=== PATIENT | male | born 1930 | race Caucasian/White ===

== ENCOUNTER 2017-04-13 03:29 | Inpatient (IN) | payer OTHER, MEDICARE ==
[~2017-04-13] VITALS: Ht 180.3 cm; Wt 95.5 kg
[2017-04-13] VITALS (41 sets, daily range): BP systolic 115–147; BP diastolic 58–93; PULSE 42–78; RESP 15–28; TEMP 97.4–98.1; O2SAT 90–100
[2017-04-13] MEDS ORDERED: ASPIRIN 81 MG CHEW TAB PO STA (03:32)
[2017-04-13] MEDS ORDERED: SODIUM CHLOR 0.9% 1000 ML INJ 1,000 ML IV ONE (03:32)
[2017-04-13] MEDS ORDERED: HEPARIN SODIUM - IV 10,000 UNITS/10 ML VIAL IV STA (03:32)
--- NOTE | 2017-04-13 03:39 | PD ---
HPI Chief Complaint: STEMI Alert Time Seen by Provider: 03:31 Travel History International Travel<30 days: No Contact w/Intl Traveler<30days: No History of Present Illness HPI 86-year-old male arrives by EMS. He's had chest pain intermittently for the past 2 days. Pain became much worse this evening and he called EMS. He's had no shortness of breath. There is no pleuritic chest pain. For the last few months he has been working out at the [employer] fairly intensely. Patient has history of hypertension. He has no history of hyperlipidemia or diabetes. He is a history of coronary artery disease. EMS EKG concerning for inferior wall SD. In the ER the patient states his chest pain is 7/10 in severity. STEMI alert activated upon the patient's arrival. [facility] Social History Tobacco Use: No Allergies-Medications (Allergen,Severity, Reaction): Coded Allergies: No Known Allergies (Unverified , 04/13/17) Reported Meds & Prescriptions Reported Meds & Active Scripts Active Reported Hydrochlorothiazide 12.5 Mg Cap 12.5 Mg PO DAILY Review of Systems ROS Limitations: Clinical Condition Physical Exam Narrative GENERAL: 86-year-old male well-nourished well-developed mild to moderate distress SKIN: Warm. Diaphoresis present. HEAD: Atraumatic. Normocephalic. EYES: Pupils equal and round. No scleral icterus. No injection or drainage. ENT: No nasal bleeding or discharge. Mucous membranes pink and moist. NECK: Trachea midline. No JVD. CARDIOVASCULAR: Sinus. Rate 40-50. RESPIRATORY: No accessory muscle use. Clear to auscultation. Breath sounds equal bilaterally. GASTROINTESTINAL: Abdomen soft, non-tender, nondistended. Hepatic and splenic margins not palpable. MUSCULOSKELETAL: No obvious deformities. No clubbing. No cyanosis. No edema. NEUROLOGICAL: Awake and alert. No obvious cranial nerve deficits. Motor grossly within normal limits. Normal speech. PSYCHIATRIC: Appropriate mood and affect; insight and judgment normal. Data Data Last Documented VS Vital Signs Date Time Temp Pulse Resp B/P Pulse Ox O2 Delivery O2 Flow Rate FiO2 04/13/17 03:30 100 2.00 04/13/17 03:30 Nasal Cannula 04/13/17 03:29 97.7 45 18 147/81 Orders Troponin I (04/13/17 03:32) Ckmb (Isoenzyme) Profile (04/13/17 03:32) Complete Blood Count With Diff (04/13/17 03:32) I-Stat Profile (04/13/17 03:32) I-Stat Creatinine (04/13/17 03:32) Calcium (04/13/17 03:32) Magnesium (Mg) (04/13/17 03:32) Prothrombin Time / Inr (Pt) (04/13/17 03:32) Act Partial Throm Time (Ptt) (04/13/17 03:32) B-Type Natriuretic Peptide (04/13/17 03:32) Chest, Single Ap (04/13/17 03:32) Electrocardiogram (04/13/17 03:32) Oxygen Administration (04/13/17 03:32) Iv Access Insert/Monitor (04/13/17 03:32) Oximetry (04/13/17 03:32) Sodium Chlor 0.9% 1000 Ml Inj (Ns 1000 M (04/13/17 03:32) Sodium Chloride 0.9% Flush (Ns Flush) (04/13/17 03:45) Aspirin Chew (Aspirin Chew) (04/13/17 03:32) Heparin Inj (Heparin Inj) (04/13/17 03:32) Admit Order (Ed Use Only) (04/13/17 03:39) CKMB (04/13/17 03:30) CKMB% (04/13/17 03:30) Labs Laboratory Tests Test 04/13/17 03:30 White Blood Count 10.7 TH/MM3 Red Blood Count 5.11 MIL/MM3 Hemoglobin 15.8 GM/DL Bedside Hemoglobin 15.6 G/DL Hematocrit 45.4 % Bedside Hematocrit 46.0 % Mean Corpuscular Volume 88.7 FL Mean Corpuscular Hemoglobin 30.8 PG Mean Corpuscular Hemoglobin 34.7 % Concent Red Cell Distribution Width 14.6 % Platelet Count 406 TH/MM3 Mean Platelet Volume 10.1 FL Neutrophils (%) (Auto) 67.8 % Lymphocytes (%) (Auto) 23.3 % Monocytes (%) (Auto) 6.2 % Eosinophils (%) (Auto) 2.0 % Basophils (%) (Auto) 0.7 % Neutrophils # (Auto) 7.2 TH/MM3 Lymphocytes # (Auto) 2.5 TH/MM3 Monocytes # (Auto) 0.7 TH/MM3 Eosinophils # (Auto) 0.2 TH/MM3 Basophils # (Auto) 0.1 TH/MM3 CBC Comment DIFF FINAL Differential Comment Prothrombin Time 11.3 SEC Prothromb Time International 1.0 RATIO Ratio Activated Partial 26.3 SEC Thromboplast Time Bedside Sodium 141 MMOL/L Bedside Potassium 3.0 MMOL/L Bedside Chloride 98 MMOL/L Bedside Blood Urea Nitrogen 21 MG/DL Bedside Creatinine 1.4 MG/DL Bedside Glucose 115 MG/DL Calcium Level 9.3 MG/DL Magnesium Level 1.9 MG/DL Total Creatine Kinase 125 U/L Creatine Kinase MB 2.7 NG/ML Troponin I 0.50 NG/ML B-Type Natriuretic Peptide 45 PG/ML MDM Medical Decision Making Medical Screen Exam Complete: Yes Emergency Medical Condition: Yes Differential Diagnosis NSTEMI, unstable angina, coronary vasospasm, PE, PTX, aortic dissection, pericarditis, myocarditis, endocarditis, PNA, esophageal disease, aneurysm, musculoskeletal etiologies, anxiety, cocaine/sympathomimetic abuse Narrative Course EKG reveals sinus rhythm with ST elevations in II III and aVF, ST depression present in V2 Case discussed with Dr. Clement's at 3:35 AM. The patient will go to the Network Program Manager for percutaneous intervention. Pt was accompanied to the laborer drying department until Dr Hanna arrived at 415AM. Critical Care Narrative Aggregate critical care time was 35 minutes. Time to perform other separately billable procedures was not included in the critical care time. My time did not include minutes spent treating any other patients simultaneously or on activities that did not directly contribute to the patient's treatment. The services I provided to this patient were to treat and/or prevent clinically significant deterioration that could result in: cardiopulmonary arrest, multiorgan failure I provided critical care services requiring my management, as noted below: Chart data review, documentation time, medication orders and management, vital sign assessments/reviewing monitor data, ordering and reviewing lab tests, ordering and interpreting/reviewing x-rays and diagnostic studies, care of the patient and discussion of the patient with the admitting physicians. Diagnosis Primary Impression: STEMI (ST elevation myocardial infarction) Qualified Code: I21.19 - ST elevation myocardial infarction (STEMI) involving other coronary artery of inferior wall Admitting Information Admitting Physician Requests: Admit Eulogio Brown MD Apr 13, 2017 03:39
[2017-04-13] MEDS ORDERED: SODIUM CHLORIDE 0.9% FLUSH 10 ML FLUSH IVF PRN (03:45)
[2017-04-13 03:46] LABS: I-STAT SODIUM 141 MMOL/L (138-146)
[2017-04-13 03:47] LABS: AUTOMATED NEUTROPHIL # 7.2 TH/MM3 (1.8-7.7); BASOPHIL # 0.1 TH/MM3 (0-0.2); BASOPHIL % 0.7 % (0.0-2.0); EOSINOPHIL # 0.2 TH/MM3 (0-0.4); HEMATOCRIT 45.4 % (39.0-51.0); HEMO FLAGS DIFF FINAL; LYMPH % 23.3 % (9.0-44.0); LYMPHOCYTE # 2.5 TH/MM3 (1.0-4.8); MEAN CELL VOLUME 88.7 FL (80.0-100.0); MEAN CORPUSCULAR HEMOGLOBIN 30.8 PG (27.0-34.0); MEAN CORPUSCULAR HGB CONC 34.7 % (32.0-36.0); MONO % 6.2 % (0.0-8.0); NEUT % 67.8 % (16.0-70.0); PLATELET COUNT 406 TH/MM3 (150-450); RED BLOOD COUNT 5.11 MIL/MM3 (4.50-5.90); RED CELL DISTRIBUTION WIDTH 14.6 % (11.6-17.2); WHITE BLOOD COUNT 10.7 TH/MM3 (4.0-11.0)
[2017-04-13 03:56] LABS: APTT (PATIENT) 26.3 SEC (24.3-30.1); PROTHROMBIN TIME - PATIENT 11.3 SEC (9.8-11.6)
[2017-04-13] MEDS ORDERED: ONDANSETRON HCL 4 MG/2 ML VIAL ONE (03:57)
[2017-04-13 04:00] LABS: MAGNESIUM 1.9 MG/DL (1.5-2.5)
[2017-04-13] MEDS ORDERED: MORPHINE SULFATE 8 MG/ML INJ ONE (04:00)
[2017-04-13 04:03] LABS: CREATINE KINASE 125 U/L (39-308)
[2017-04-13 04:15] LABS: CKMB 2.7 NG/ML (0.5-3.6)
[2017-04-13] MEDS ORDERED: HEPARIN SODIUM - IV 10,000 UNITS/10 ML VIAL ONE (04:18)
--- NOTE | 2017-04-13 04:19 | RADRPT ---
EXAM DATE/TIME: 04/13/2017 03:29 [place] COMPARISON: No previous studies available for comparison. INDICATIONS : STEMI ALERT. MEDICAL HISTORY : None. SURGICAL HISTORY : None. ENCOUNTER: Initial ACUITY: 1 day PAIN SCORE: Non-responsive. LOCATION: Bilateral chest FINDINGS: A single view of the chest demonstrates the lungs to be symmetrically aerated without evidence of mas s, confluent infiltrate or effusion. The cardiomediastinal contours are unremarkable. Streaky opaci ty is present at both lung bases. Osseous structures are intact. CONCLUSION: Streaky opacities present at the lung bases most characteristic of scarring and/or at electasis. Dallin Landry MD on April 13, 2017 at 4:16 Board Certified Radiologist. This report was verified electronically.
[2017-04-13] MEDS ORDERED: HYDR12.57 PO (04:22)
[2017-04-13] MEDS ORDERED: ATROPINE SULFATE 1 MG/10 ML SYRINGE ONE ×3 (04:33→06:30)
[2017-04-13] MEDS ORDERED: ONDANSETRON HCL 4 MG/2 ML VIAL IV PUSH ONE (04:45)
[2017-04-13] MEDS ORDERED: ATROPINE SULFATE 1 MG/10 ML SYRINGE IV PUSH ONE (04:45)
[2017-04-13] MEDS ORDERED: MORPHINE SULFATE 8 MG/ML INJ IV PUSH ONE (04:45)
[2017-04-13] MEDS ORDERED: HEPARIN-D5W INJ 250 ML ONE (05:01)
[2017-04-13] MEDS ORDERED: POTASSIUM CHLORIDE 20 MEQ CONTROLLED RELEASE TAB PO ONE (05:20)
[2017-04-13] MEDS ORDERED: TEMAZEPAM 15 MG CAP PO PRN (05:30)
[2017-04-13] MEDS ORDERED: HEPARIN-D5W INJ 250 ML IV SCH (05:30)
[2017-04-13] MEDS ORDERED: POTASSIUM CHLOR 20 MEQ PREMIX 100 ML IV ONE (05:30)
[2017-04-13] MEDS ORDERED: SODIUM CHLORIDE 0.9% FLUSH 5 ML FLUSH IVF PRN (05:30)
--- NOTE | 2017-04-13 05:30 | CATHPROC ---
[employer] HIS Report Study Information Study Number Admission Scheduled Start Study Start [id number] Apr 13 2017 3:40AM 04/13/2017 Apr 13 2017 4:06AM [place] Service Cardiac Catheterization Admit Source Facility Department Emergency department [facility] Physician and Clinical Staff Initial Fransisco Leal [employer] Work Supervisor Litzy Ojeda RN [employer] Work Supervisor Abraham WASHBURN, Toño Spangler cathlab, cathlab Recorder Rosy Camargo,BONE GLUE MAKER TECH2 Scrub Bill De La Torre,RT(R) Procedures Performed Procedure Location (Site) Vessel Name Coronary Angiograms LCA Left Coronary Coronary Angiograms RCA Right Coronary IABP Fem Art (right) Femoral Art L Heart Cath PTCA RCA Ost Right Coronary PTCA RCA Prox Right Coronary Wire insertion Fem Art (right) Femoral Art Equipment Time Toe Closing Machine Tender Description Size Mfg Part Number Used/Scraped [id number] 04:37 [employer] WIRE, ASAHI PROWATER 180CM 180CM Used *[id number] TRANSDUCER, TRUWAVE [id number] 04:27 VILLANUEVA NORTON * Used W/STOCKCOCK *[id number] 04:40 BOSTON SCIENTIFIC BALLOON, 2.0 15MM EMERGE MR 2.0 15MM Used *[id number] *[id number] *[id number] *[id number] 04:51 MAQUET BALLOON, FR8 50CC FR 8 50CC Used 01U [id number] 04:27 MEDLINE INDUSTRIES PACK, CCL CUSTOM * Used *[id number] 04:27 FeZo PACER PEN, SKIN DUAL W/ RULER * Used *[id number] 04:41 Ready To Travel MEDICAL 30 ANI INDEFLATOR Used *[id number] 04:27 Ready To Travel MEDICAL SHEATH, FR6.5 PRELUDE 11CM FR 6.5 038ACT Used *[id number] 04:27 Ready To Travel MEDICAL WIRE, 3MMJ .035 180CM 180CM Used *[id number] 04:27 NAMIC MANIFOLD, 4 PORT * Used *[id number] 04:27 NYCOMED OMNIPAQUE, 350 MG, 150ML 150ML [id number] Used [id number] 04:27 PAN MEDICAL BLANKET,WARM AIR CCL * Used *[id number] Equipment Model, Serial, Lot Number and Expiration Data Description Model Number Serial Number Lot Number Expiration Date BALLOON, 2.0 15MM EMERGE MR [id number] 11-01-2019 History: Allergies Allergy Reaction No Known Allergies History: Risk Factors Family History of Hypertension Dyslipidemia Previous [place] Previous Heart Failure Premature CAD Yes No No No No Prior Valve Prior PCI Prior CABG Surgery No No No Cerebrovascular Peripheral Artery Chronic Lung On Dialysis Diabetes Disease Disease Disease No No No No No Labs Hgb (g/dl) Hct (%) RBC (MIL/MM3) WBC (l/cumm) Platelets (thousands) 11.60-17.00 35.00-51.00 4.00-5.90 4.00-11.00 150.00-450.00 15.6 45.4 5.1 10.7 406 Glucose (mg/dl) BUN (mg/dl) Creatinine (mg/dl) BUN:Creatinine (1:x) 74.00-106.00 7.00-18.00 0.50-1.30 10.00-20.00 115 21 1.4 15 Na (meq/l) K (meq/l) Cl (meq/l) Ca (mg/dl) 136.00-145.00 3.50-5.10 98.00-107.00 8.50-10.10 141 3 98 8.3 PT (sec) PTT (sec) INR (PTT:PT) 9.80-11.60 24.30-30.10 0.90-1.10 11.3 26.3 1 Troponin I (ng/ml) 0.02-0.05 0.5 Medication Medication Total Dose (Bolus/Oral) Medication Total Dosage/Unit 1% XYLOCAINE 20 mL ATROPINE 1 mg FENTANYL 50 mcg HEPARIN 6000 units OXYGEN 2 l/min POTASSIUM CHLORIDE 40 meq Medications (Bolus/Oral) Medication Time Given Dosage/Unit Administered By Reason OXYGEN 04/13/2017 4:08:29 AM 2 l/min Patient arrived on 2 l/min OXYGEN via Nasal. FENTANYL 04/13/2017 4:19:27 AM 50 mcg Toño Rosario RN 50 mcg FENTANYL given in lab by Toño Rosario RN in Left Antecubital via Peripheral IV. Ordered by Fransisco Castillo. 1% XYLOCAINE 04/13/2017 4:26:17 AM 20 mL Fransisco Hanna 20 mL 1% XYLOCAINE given in lab by Fransisco Hanna in Right Groin via Subcutaneous. Ordered by Maikol Hanna enn. HEPARIN 04/13/2017 4:34:39 AM 6000 units Toño Rosario RN 6000 units HEPARIN given in lab by Toño Rosario RN in Left Antecubital via Peripheral IV. Ordered by Fransisco Hanna. ATROPINE 04/13/2017 4:52:43 AM 0.5 mg Toño Rosario RN 0.5 mg ATROPINE given in lab by Toño Rosario RN in Left Antecubital via Peripheral IV. Ordered by Fransisco Castillo. ATROPINE 04/13/2017 4:53:17 AM 0.5 mg Litzy Ojeda 0.5 mg ATROPINE given in lab by Litzy Ojeda RN in Left Antecubital via Peripheral IV. Ordered by Fransisco Hanna. POTASSIUM CHLORIDE 04/13/2017 5:23:11 AM 40 meq Litzy Ojeda 40 meq POTASSIUM CHLORIDE given in lab by Litzy Ojeda RN via Oral. Medication (Drip) Medication Time Given Dosage/Unit Concentration/Unit Diluent (ml) Solution HEPARIN DRIP 04/13/2017 5:04:53 AM 1000 units/hr 05354 units 250 D5W Patient arrived on 1000 units/hr HEPARIN DRIP given by Litzy Ojeda RN in Right Antecubital via Pe ripheral IV. Pump/Drip Flow = 10 ml/hr using D5W [place] [address] units in 250 ml. IV Solutions 04/13/2017 4:06:56 AM 0 mL (IV) 1000 NaCl .9 IV Solutions given in lab by Toño Rosario RN in Left Antecubital via Peripheral IV. Pump/Drip Flow = 20 ml/hr using NaCl .9. Ordered by Fransisco Hanna. Initial Case Assessment Cardiovascular HR NIBP 66 161/101 Edema Present Skin color Skin Moderate Normal Warm Circulatory - Right Pulses Posterior Tibial Femoral d 3 Scale (0,1,2,3,4,d) Circulatory - Left Pulses Posterior Tibial Femoral d 3 Scale (0,1,2,3,4,d) Neurological State Oriented to time-place- Alert Moves all extremities person Respiration - General Respiration Rate SpO2 (%) O2 (lpm) (B/min) 15 100 2 Final Case Assessment Cardiovascular HR NIBP 66 91/65 Edema Present Skin color Skin Moderate Normal Warm Circulatory - Right Pulses Posterior Tibial Femoral d 3 Scale (0,1,2,3,4,d) Circulatory - Left Pulses Posterior Tibial Femoral d 3 Scale (0,1,2,3,4,d) Neurological State Oriented to time-place- Alert Moves all extremities person Respiration - General Respiration Rate SpO2 (%) O2 (lpm) (B/min) 12 100 3 Chronological Log Time Study Chronological Log 4:06:40 Patient arrived via Bed. 4:06:40 Patient Name, D.O.B, / Armband Verified By R.N. 4:06:41 Consent signed by the physician and the patient and verified by the [facility] staff. 4:06:42 Pre-op and post- op instructions given; patient acknowledges understanding of instructions. 4:06:42 Verbal Stimulation=2 Physical Stimulation=2 Airway=2 Respiration=2 TOTAL=8. (0=absent, 1=li mited, 2=present) 4:06:44 Presedation assessment performed by [facility] RN. 4:06:47 Patient has been NPO for Less than 6Hrs. 4:06:48 NO Skin Breakdown- 4:06:49 Patient Warmer Placed on the Table. 4:06:51 Leonardo Prominences Protected 4:06:53 A # 20 IV was noted in the Antecubital (left). Grade = 0 IV Solutions given in lab by Toño Rosario RN in Left Antecubital via Peripheral IV. Pump/Drip Flow = 20 ml/hr using NaCl 4:06:56 .9. Ordered by Fransisco Hanna. 4:06:58 History and physical on the chart or being dictated. 4:08:29 Patient arrived on 2 l/min OXYGEN via Nasal. Vitals capture started with the following parameters, Patient=Adult, Interval=5 min, Initial P eiftnmb=432 mmHg, 4:09:18 Deflation Rate=5 mmHg, Cuff placed on Right Arm 4:09:57 HR=66 bpm, VUSG=102/103 mmhg, SmF3=008.0 %, Pain=7, Nomi=10, Lorenzo=2 4:14:54 HR=66 bpm, XOWS=830/93 mmhg, SpO2=96.0 %, Resp=9 B/min, Pain=7, Nomi=10, Lorenzo=2 4:17:15 Reference ECG taken 4:19:27 50 mcg FENTANYL given in lab by Toño Rosario RN in Left Antecubital via Peripheral IV. Order ed by Fransisco Hanna. 4:19:57 HR=58 bpm, HNFH=929/101 mmhg, UpU2=280.0 %, Resp=10 B/min, Pain=7, Nomi=10, Lorenzo=2 Assessment: Initial Case, HR=66 BPM, LBNR=111/101 mmhg, Edema=Mod, Color=Normal, Skin = Warm Right Pulses: Post Tib=d, Femoral=3 4:21:25 Left Pulses: Post Tib=d, Femoral=3 Neurological: State=Alert, Ox3, RITCHIE Respiration: Resp=15 B/min, YlP6=891 %, O2=2 lpm 4:21:47 Pressure channel 1 zeroed. Time Out. Correct patient, correct procedure,correct physician, ,power injector loaded or not lo aded with contrast with 4:24:38 surgical team present. Time Out Concurred by MD, individual staff and SOCIAL SERVICE MANAGER in procedure 4:24:58 HR=56 bpm, MBML=066/105 mmhg, FaA5=984.0 %, Resp=23 B/min, Pain=7, Nomi=10, Lorenzo=2 4:25:42 Case Start 4:26:17 20 mL 1% XYLOCAINE given in lab by Fransisco Hanna in Right Groin via Subcutaneous. Ordered by Fransisco Hanna. 4:26:23 Access site was Right Femoral Artery. 4:26:38 A SHEATH, FR6.5 PRELUDE 11CM FR 6.5 was advanced into the Fem Art (right) using the Modified Seldinger technique. A JL 4.0 INFINITI CATHETER FR 6 was advanced over a wire. OMNIPAQUE, 350 MG, 150ML 150ML was use d for 4:27:02 injections. 4:27:58 Activated Clotting Time Drawn 4:29:27 The LCA was injected and visualized at various angles. OMNIPAQUE, 350 MG, 150ML 150ML used. Recorded Pressure: Ao, HR=80, Condition=Condition 1 4:29:38 (Aorta) Ao 153/87/118 4:29:54 ACT (Normal Range 90-180) = 174 4:30:22 HR=80 bpm, LCYQ=350/92 mmhg, QhL0=440.0 %, Resp=15 B/min, Pain=7, Nomi=10, Lorenzo=2 4:31:23 shock at 200jouls 4:32:03 Catheter was removed A 3DRC INFINITI CATHETER FR 6 was advanced over a wire. OMNIPAQUE, 350 MG, 150ML 150ML was used for 4:32:04 injections. 4:33:23 The RCA was injected and visualized at various angles. OMNIPAQUE, 350 MG, 150ML 150ML used. 4:34:39 6000 units HEPARIN given in lab by Toño Rosario RN in Left Antecubital via Peripheral IV. Or dered by Fransisco Hanna. 4:34:54 HR=55 bpm, SDBW=634/94 mmhg, SpO2=99.0 %, Resp=17 B/min, Pain=7, Nomi=10, Lorenzo=2 4:36:09 Catheter was removed A HS SH GUIDE CATHETER FR 6 was advanced over a wire. OMNIPAQUE, 350 MG, 150ML 150ML was used fo r 4:36:11 injections. 4:36:55 A WIRE, ASAHI PROWATER 180CM 180CM was inserted via Fem Art (right). 4:39:55 HR=55 bpm, PNAL=306/98 mmhg, SpO2=99.0 %, Resp=15 B/min, Pain=7, Nomi=10, Lorenzo=2 A BALLOON, 2.0 15MM EMERGE MR 2.0 15MM was inserted over WIRE, ASAHI PROWATER 180CM 180CM via th e RCA 4:40:52 Prox. A BALLOON, 2.0 15MM EMERGE MR 2.0 15MM over a WIRE, ASAHI PROWATER 180CM 180CM in the RCA Prox w as 4:41:14 inflated using a 30 ANI INDEFLATOR at 8 ani for 30 sec. A BALLOON, 2.0 15MM EMERGE MR 2.0 15MM over a WIRE, ASAHI PROWATER 180CM 180CM in the RCA Prox w as 4:42:00 inflated using a 30 ANI INDEFLATOR at 10 ani for 30 sec. A BALLOON, 2.0 15MM EMERGE MR 2.0 15MM over a WIRE, ASAHI PROWATER 180CM 180CM in the RCA Ost wa s 4:42:50 inflated using a 30 ANI INDEFLATOR at 8 ani for 20 sec. 4:44:13 ACT (Normal Range 90-180) = 260 A BALLOON, 2.0 15MM EMERGE MR 2.0 15MM over a WIRE, ASAHI PROWATER 180CM 180CM in the RCA Ost wa s 4:44:22 inflated using a 30 ANI INDEFLATOR at 13 ani for 45 sec. 4:44:52 HR=9 bpm, YYSM=259/84 mmhg, FdK8=560.0 %, Resp=15 B/min, Pain=0, Nomi=10, Lorenzo=2 A BALLOON, 2.0 15MM EMERGE MR 2.0 15MM over a WIRE, ASAHI PROWATER 180CM 180CM in the RCA Ost w as 4:45:31 inflated using a 30 ANI INDEFLATOR at 8 ani for 33 sec. 4:46:29 Balloon Removed. 4:49:55 HR=78 bpm, ELPS=529/71 mmhg, SpO2=99.0 %, Resp=15 B/min, Pain=0, Nomi=10, Lorenzo=2 4:50:26 Catheter was removed 4:50:27 Wire removed 4:52:43 0.5 mg ATROPINE given in lab by Toño Rosario RN in Left Antecubital via Peripheral IV. Orde red by Fransisco Hanna. 4:53:17 0.5 mg ATROPINE given in lab by Litzy Ojeda RN in Left Antecubital via Peripheral IV. O rdered by Fransisco Hanna. 4:54:50 HR=34 bpm, NIBP=99/61 mmhg, SpO2=77.0 %, Resp=20 B/min, Pain=7, Nomi=10, Lorenzo=2 4:58:17 NIBP STAT measurement started. 4:58:55 Sheath exchanged for intra-aortic balloon insertion. An BALLOON, FR8 50CC FR 8 50CC was advanced to the descending aorta. Proper placement was confi red under 4:58:57 fluoroscopy and the balloon was sutured in place. Ratio = ~RATIO~. Augmented BP ~SYS~/~TOM~ 4:59:29 HR=0 bpm, KNVQ=112/48 mmhg, YbO4=442.0 %, Resp=16 B/min, Pain=7, Nomi=10, Lorenzo=2 5:00:00 Case End 5:04:49 Sterile dressing applied to site 5:04:52 HR=0 bpm, NIBP=84/63 mmhg, UvG9=030.0 %, Resp=12 B/min, Pain=7, Nomi=10, Lorenzo=2 Patient arrived on 1000 units/hr HEPARIN DRIP given by Litzy Ojeda, RN in Right Antecubital via Peripheral IV. 5:04:53 Pump/Drip Flow = 10 ml/hr [place] [address] units in 250 ml. 5:09:47 HR=0 bpm, NIBP=91/65 mmhg, AaW4=407.0 %, Resp=12 B/min, Pain=7, Nomi=10, Lorenzo=2 5:09:54 Vitals capture stopped. Assessment: Final Case, HR=66 BPM, NIBP=91/65 mmhg, Edema=Mod, Color=Normal, Skin = Warm Right Pulses: Post Tib=d, Femoral=3 5:10:00 Left Pulses: Post Tib=d, Femoral=3 Neurological: State=Alert, Ox3, RITCHIE Respiration: Resp=12 B/min, RzG3=059 %, O2=3 lpm 5:11:53 No case complications noted. 5:12:00 Cine recording checked. 5:12:08 A Left Heart Cath was performed. 5:12:09 Patient moved to [facility] PCI QA completed: Pre-Lul - 3, Post Lul - 3, Type - C, Length - 15 mm, Morphology - Atypical, Indications - 5:23:05 ~INDICATIONS~, Pre-Stenosis - 90% and Post Stenosis - 90%. 5:23:11 40 meq POTASSIUM CHLORIDE given in lab by Litzy Ojeda, RN via Oral. 5:24:22 PCI QA obtained from Process Mold Technician PCI QA completed: Pre-Lul - 3, Post Lul - 3, Type - C, Length - 12 mm, Morphology - Atypical, Indications - Lesion > 5:25:11 50/stem, Pre-Stenosis - 90% and Post Stenosis - 90%. End Study - Contrast Media Used In Study Contrast Total Opened (mL) Total Used (mL) Total Wasted (mL) Omnipaque 135 135 0 End Study - Maximum Contrast Load Max Contrast Load (mL) 308.3 End Study - Radiation Exposure Fluoro Time (minutes) 6.7 End Study - Patient Disposition Complications Transferred To Interventional Outcome No Critical Care Bed successful
[2017-04-13] MEDS ORDERED: CHLORHEXIDINE GLUCONATE 2 % 1 PACK (2 CLOTHS)(extra cloths) TOPICAL PRN (05:45)
[2017-04-13] MEDS: SODIUM CHLOR 0.9% 1000 ML INJ 1,000 ML IV SCH ×2 (06:09→16:10)
[2017-04-13] MEDS ORDERED: MORPHINE SULFATE 4 MG/ML INJ IV SCH (06:45)
[2017-04-13] MEDS: MORPHINE SULFATE 4 MG/ML INJ IV PRN ×2 (06:45→06:50)
--- NOTE | 2017-04-13 06:58 | MA ---
cc: LEANDER CHANDRA M.D. DATE 04/12/2017 PROCEDURE Emergency left heart catheterization, selective coronary angiography, angioplasty of the right coronary artery, placement of an intraaortic balloon pump. PROCEDURE NOTES The patient was brought to the cardiac catheterization laboratory in a fasting state after having signed informed consent under emergency conditions in the midst of an acute inferior wall myocardial infarction. The right groin was prepped and draped as per policy and anesthetized with 1% lidocaine. Arterial access was obtained via the right femoral artery and a 6-[place] sheath placed. Coronary arteriography was performed using 6-[place] Lana, left 4.0 and right progressive catheters. Left ventriculography was not done. The aortic valve was crossed briefly with the Progressive right catheter demonstrating no transvalvular aortic gradient. Percutaneous coronary intervention was done as described below. HEMODYNAMIC RESULTS Left ventricle 126 with an end-diastolic pressure of 18. Aorta 118/60. CORONARY ARTERIOGRAPHY Most evident on the TUNISIAN cranial view, the left main may have severe ostial to proximal disease. The extent of this disease is not seen on other views, although there appears to be at least moderate diffuse disease of the left main in these other views. The left anterior descending is diffusely diseased. There is up to 70% stenosis proximally and 80% stenosis in its midportion. The LAD gives rise to two small tortuous diagonals the first of which may have 50% ostial stenosis. The distal LAD has mild diffuse luminal irregularities and wraps around the apex. The left circumflex is a small vessel giving rise to a medium-sized obtuse marginal. There is 95% stenosis in the very proximal left circumflex. The obtuse marginal has diffuse ostial to proximal disease resulting in up to 40-50% stenosis. The right coronary artery is totally occluded proximally. No definite [id number] collaterals were seen. LEFT VENTRICULOGRAPHY Not done. PERCUTANEOUS CORONARY INTERVENTION DESCRIPTION Adequate heparin was given to achieve an ACT of 260 seconds. It was decided to reestablish flow in the right coronary artery and eventually refer the patient for coronary artery bypass grafting. Using a 6-[place] hockey-stick guiding catheter with side holes the ostium of the right coronary artery was re-engaged. Using a 0.014 [place] guidewire the total occlusion was crossed without difficulty and the tip of the wire positioned distally. Wiring the occlusion restored normal flow in the vessel. Multiple inflations were done at the site of total occlusion using a 2.0-mm Emerge balloon catheter. A 95% lesion distally was also ballooned using the same balloon catheter. What appears to be the posterior descending artery is very small and has severe ostial disease. The continuation of the distal right coronary is fairly large in caliber and adequate for bypass grafting. Final angiography of the right coronary artery shows reduction of the total occlusion to 90% stenosis with resolution of the patient's chest discomfort. At this point it was decided to place an intraaortic balloon pump. The sheath was exchanged for a balloon pump sheath. Through this sheath an intraaortic balloon pump was introduced and its tip positioned in the aortic knob where adequate diastolic augmentation was demonstrated. Of note, during the case the patient did develop two episodes of ventricular fibrillation for which he received 200 joule shocks with church of what appears to be sinus rhythm or atrial fibrillation. His mentation remained normal throughout the case. CONCLUSIONS 1. Severe three-vessel coronary artery disease. 2. Right dominant system. 3. Status post balloon angioplasty of the proximal and distal right coronary artery. 4. Status post placement of an intraaortic balloon pump. DISCUSSION The patient will now be referred for bypass surgery. Bypass grafts could be placed to the LAD, obtuse marginal distal right coronary. MD ALEE Jimenez/ELIJAH /5:04 AM /6:40 AM ALESSIO
--- NOTE | 2017-04-13 07:09 | MB ---
cc: LEANDER CHANDRA M.D. DATE OF CONSULTATION 04/13/2017 REASON FOR CONSULTATION Acute ST-elevation myocardial infarction. HISTORY OF PRESENT ILLNESS The patient is an 86-year-old white male with a history of hypertension and hyperlipidemia who was in his usual state of health up until 48 hours ago when he began to experience waxing and waning substernal chest discomfort without associated shortness of breath, nausea or diaphoresis. The chest pain would be most intense in the morning and would gradually reduce in intensity throughout the day. This morning the pain was especially severe so he finally came to the emergency room for further evaluation and treatment. The patient states the chest discomfort has been nonstop for the past 48 hours. At this time he has 08/10 intensity chest discomfort. He denies dizziness, syncope, near-syncope, palpitations, pedal edema, paroxysmal nocturnal dyspnea. He is very active and exercises on a regular basis. PAST MEDICAL HISTORY 1. Hypertension. 2. Hyperlipidemia. CARDIAC MEDICATIONS AT HOME 1. Hydrochlorothiazide. 2. A statin. ALLERGIES No known drug allergies. FAMILY HISTORY Noncontributory. SOCIAL HISTORY The patient denies alcohol or tobacco abuse. REVIEW OF SYSTEMS As in the History of Present Illness, otherwise negative or noncontributory. He also denies headache, visual changes, abdominal pain, melena, dyspepsia, bright red blood per rectum. PHYSICAL EXAMINATION VITAL SIGNS: His blood pressure is 91/65 with a pulse of 85, respirations 20. IN GENERAL: He is a well-developed, thin white male in no acute distress. HEENT/NECK EXAMINATION: Jugular venous pressure is normal. Carotid pulses are 2+ bilaterally and without bruits. CHEST: Examination of the chest reveals clear lung crawford anteriorly on cardiac examination. He has an irregularly irregular rhythm without definite S3 or murmur. ABDOMEN: On abdominal examination he has a soft, nontender abdomen. Bowel sounds are present. There is no definite hepatosplenomegaly. EXTREMITIES: Examination of extremities reveals no clubbing, cyanosis or edema. Peripheral pulses are normal throughout. EKG Sinus bradycardia, inferior ST elevation with reciprocal changes consistent with acute inferior injury pattern. LABORATORY DATA WBC 10.7, hemoglobin 15.8, platelets 406. INR 1.0, potassium 3.0, creatinine 1.4, BUN 21, CK 125. Troponin 0.5. CHEST X-RAY No definite acute disease. IMPRESSION Paroxysmal atrial fibrillation, acute inferior ST-elevation myocardial infarction in this 86-year-old white male with a history of hypertension and hyperlipidemia. At this time he continues to have severe angina associated with fairly marked ST-segment elevation on the monitor. He appears to have intermittent atrial fibrillation as well. Therefore he has been recommended emergency cardiac catheterization with probable percutaneous coronary intervention, the risks of which have explained him including but not limited to , myocardial infarction, stroke, arrhythmia, bleeding, infection, renal failure. He agrees to proceed. RECOMMENDATIONS 1. Emergency cardiac catheterization. 2. Hold off on beta daniella and BRAVO inhibitor therapy at this time with the relatively low blood pressure. 3. Check a fasting lipid profile. Leander Chandra MD [facility]/SSB /5:12 AM /6:55 AM ALESSIO
[2017-04-13 07:44] LABS: BACTERIA, URINE RARE /hpf; BLOOD, URINE NEG (NEG); GLUCOSE,URINE NEG (NEG); KETONE, URINE NEG (NEG); NITRITE,URINE NEG (NEG); URINE COLOR YELLOW (YELLW/STRAW)
[2017-04-13 07:45] LABS: COMMENT (UR) CATH-CULTURE IND; CULTURE IF INDICATED CATH CULTURE IND
[2017-04-13] MEDS ORDERED: MORPHINE SULFATE 4 MG/ML INJ IV PUSH PRN (08:15)
--- NOTE | 2017-04-13 08:37 | PD.CARD.PN ---
Subjective Subjective Remarks No further angina. No groin pain, leg pain, dyspnea, dizziness. Objective Medications Item Value Date Time Atorvastatin 40 mg 04/13/17 2100 Calcium HS/PO (Lipitor) Aspirin 81 mg 04/13/17 0900 (Aspirin Chew) DAILY/PO Heparin Sodium/ 250 ml @ 0 mls/hr 04/13/17 0530 Dextrose TITRATE/IV Vital Signs / I&O Vital Signs Date Time Temp Pulse Resp B/P Pulse Ox O2 Delivery O2 Flow Rate FiO2 04/13/17 08:00 60 04/13/17 08:00 98.1 60 22 121/68 98 04/13/17 08:00 83/75 04/13/17 07:30 65 22 98 04/13/17 07:00 85/76 04/13/17 07:00 67 20 116/65 100 04/13/17 06:30 68 15 100 04/13/17 06:00 74 18 120/58 100 04/13/17 06:00 73 04/13/17 03:57 78 20 140/93 98 Nasal Cannula 2 04/13/17 03:45 42 18 137/78 98 Nasal Cannula 2 04/13/17 03:30 100 2.00 04/13/17 03:30 100 Nasal Cannula 2.00 04/13/17 03:29 41 18 99 Nasal Cannula 2 04/13/17 03:29 99 Nasal Cannula 2 04/13/17 03:29 98 Nasal Cannula 2 04/13/17 03:29 97.7 45 18 147/81 99 Nasal Cannula 2 I/O 04/12/17 04/12/17 04/12/17 04/13/17 04/13/17 04/13/17 07:00 15:00 23:00 07:00 15:00 23:00 Intake Total 1200 ml Output Total 320 ml Balance 1200 ml -320 ml Intake Oral 0 ml IV Total 1200 ml Output Urine Total 320 ml Physical Exam GENERAL: Well developed, well nourished. No acute distress. HEENT: Jugular venous pressure is normal. CHEST: Lungs clear to auscultation anteriorly. CARDIAC: Regular rate and rhythm without S3, S4, or murmur. ABDOMEN: Soft, nontender, no hepatosplenomegaly. Bowel sounds present. EXTREMITIES: No clubbing, cyanosis, or edema. Right groin nontender, no hematoma. Distal RLE well perfused. Laboratory Laboratory Tests Test 04/13/17 04/13/17 03:30 05:50 White Blood Count 10.7 TH/MM3 Red Blood Count 5.11 MIL/MM3 Hemoglobin 15.8 GM/DL Bedside Hemoglobin 15.6 G/DL Hematocrit 45.4 % Bedside Hematocrit 46.0 % Mean Corpuscular Volume 88.7 FL Mean Corpuscular Hemoglobin 30.8 PG Mean Corpuscular Hemoglobin 34.7 % Concent Red Cell Distribution Width 14.6 % Platelet Count 406 TH/MM3 Mean Platelet Volume 10.1 FL Neutrophils (%) (Auto) 67.8 % Lymphocytes (%) (Auto) 23.3 % Monocytes (%) (Auto) 6.2 % Eosinophils (%) (Auto) 2.0 % Basophils (%) (Auto) 0.7 % Neutrophils # (Auto) 7.2 TH/MM3 Lymphocytes # (Auto) 2.5 TH/MM3 Monocytes # (Auto) 0.7 TH/MM3 Eosinophils # (Auto) 0.2 TH/MM3 Basophils # (Auto) 0.1 TH/MM3 CBC Comment DIFF FINAL Differential Comment Prothrombin Time 11.3 SEC Prothromb Time International 1.0 RATIO Ratio Activated Partial 26.3 SEC Thromboplast Time Bedside Sodium 141 MMOL/L Bedside Potassium 3.0 MMOL/L Bedside Chloride 98 MMOL/L Bedside Blood Urea Nitrogen 21 MG/DL Bedside Creatinine 1.4 MG/DL Bedside Glucose 115 MG/DL Calcium Level 9.3 MG/DL Magnesium Level 1.9 MG/DL Total Creatine Kinase 125 U/L Creatine Kinase MB 2.7 NG/ML Troponin I 0.50 NG/ML B-Type Natriuretic Peptide 45 PG/ML Urine Color YELLOW Urine Turbidity CLEAR Urine pH 5.0 Urine Specific [place] GREATER THAN 1.050 Urine Protein TRACE mg/dL Urine Glucose (UA) NEG mg/dL Urine Ketones NEG mg/dL Urine Occult Blood NEG Urine Nitrite NEG Urine Bilirubin NEG Urine Urobilinogen LESS THAN 2.0 MG/DL Urine Leukocyte Esterase NEG Urine RBC 2 /hpf Urine WBC LESS THAN 1 /hpf Urine Bacteria RARE /hpf Microscopic Urinalysis Comment CATH-CULTURE IND Imaging Last 48 hours Impressions Chest X-Ray 04/13/17 0332 Signed Impressions: Service Date/Time: April 03:29 - CONCLUSION: Streaky opacities present at the lung bases most characteristic of scarring and/or atelectasis. Dallin Landry MD Assessment and Plan Problem List: (1) STEMI (ST elevation myocardial infarction) Assessment and Plan: Stable s/p PTCA of occluded proximal RCA to re-establish flow and s/p placement IABP. LAD, left circumflex, and probably left main also with severe disease. Echo pending to assess LV function. Groin stable. No further angina. BP better. REC await cardiothoracic surgery consult, await echo as BP better, will try to start low dose beta daniella continue heparin drip, aspirin (2) Hypertension Assessment and Plan: Transiently hypotensive after cath, now normotensive. Continue to monitor. (3) Hyperlipidemia Assessment and Plan: Awaiting lipid profile. Continue statin. Code Status full code Discussed Condition With patient and daughter Problem Qualifiers (1) STEMI (ST elevation myocardial infarction): Qualified Code: I21.19 - ST elevation myocardial infarction (STEMI) involving other coronary artery of inferior wall (2) Hypertension: Qualified Code: I10 - Essential hypertension (3) Hyperlipidemia: Qualified Code: E78.5 - Hyperlipidemia, unspecified hyperlipidemia type Fransisco Hanna MD Apr 13, 2017 08:37
--- NOTE | 2017-04-13 08:49 | PD.CONS ---
[facility] Service Critical Care Medicine Consult Requested By Dr. Hanna Reason for Consult STEMI Primary Care Physician Unknown History of Present Illness 86-year-old male arrives by EMS. He's had chest pain intermittently for the past 2 days. Pain became much worse this evening and he called EMS. He's had no shortness of breath. There is no pleuritic chest pain. For the last few months he has been working out at the [employer] fairly intensely. Patient has history of hypertension. He has no history of hyperlipidemia or diabetes. He is a history of coronary artery disease. EMS EKG concerning for inferior wall RI. In the ER the patient states his chest pain is 7/10 in severity. STEMI alert activated upon the patient's arrival. The patient emergently went left heart catheterization with PTCA of the right coronary artery and intra-aortic balloon pump placement. Upon evaluation the patient was noted to have left main 85% occlusion, proximal LAD 70% occlusion, mid LAD 80% occlusion, with RCA 100% excluded status post PCI 90% occlusion. During the procedure the patient had V. fib arrest 2, defibrillations with resolution. History PFSH Social History Tobacco Use: No Allergies-Medications Allergies-Medications (Allergen,Severity, Reaction): Coded Allergies: No Known Allergies (Unverified , 04/13/17) Reported Meds & Prescriptions Reported Meds & Active Scripts Active Reported Hydrochlorothiazide 12.5 Mg Cap 12.5 Mg PO DAILY ROS Review of Systems ROS Limitations: Clinical Condition Review of Systems ROS Limitations: Clinical Condition Past Family Social History Allergies: Coded Allergies: No Known Allergies (Unverified , 04/13/17) Physical Exam Vital Signs Vital Signs Date Time Temp Pulse Resp B/P Pulse Ox O2 Delivery O2 Flow Rate FiO2 04/13/17 07:00 85/76 04/13/17 06:00 73 04/13/17 03:57 78 20 140/93 98 Nasal Cannula 2 04/13/17 03:45 42 18 137/78 98 Nasal Cannula 2 04/13/17 03:30 100 2.00 04/13/17 03:30 100 Nasal Cannula 2.00 04/13/17 03:29 41 18 99 Nasal Cannula 2 04/13/17 03:29 99 Nasal Cannula 2 04/13/17 03:29 98 Nasal Cannula 2 04/13/17 03:29 97.7 45 18 147/81 99 Nasal Cannula 2 Laboratory Laboratory Tests Test 04/13/17 04/13/17 03:30 05:50 White Blood Count 10.7 Red Blood Count 5.11 Hemoglobin 15.8 Bedside Hemoglobin 15.6 Hematocrit 45.4 Bedside Hematocrit 46.0 Mean Corpuscular Volume 88.7 Mean Corpuscular Hemoglobin 30.8 Mean Corpuscular Hemoglobin 34.7 Concent Red Cell Distribution Width 14.6 Platelet Count 406 Mean Platelet Volume 10.1 Neutrophils (%) (Auto) 67.8 Lymphocytes (%) (Auto) 23.3 Monocytes (%) (Auto) 6.2 Eosinophils (%) (Auto) 2.0 Basophils (%) (Auto) 0.7 Neutrophils # (Auto) 7.2 Lymphocytes # (Auto) 2.5 Monocytes # (Auto) 0.7 Eosinophils # (Auto) 0.2 Basophils # (Auto) 0.1 CBC Comment DIFF FINAL Differential Comment Prothrombin Time 11.3 Prothromb Time International 1.0 Ratio Activated Partial 26.3 Thromboplast Time Bedside Sodium 141 Bedside Potassium 3.0 Bedside Chloride 98 Bedside Blood Urea Nitrogen 21 Bedside Creatinine 1.4 Bedside Glucose 115 Calcium Level 9.3 Magnesium Level 1.9 Total Creatine Kinase 125 Creatine Kinase MB 2.7 Troponin I 0.50 B-Type Natriuretic Peptide 45 Urine Color YELLOW Urine Turbidity CLEAR Urine pH 5.0 Urine Specific [place] GREATER THAN 1.050 Urine Protein TRACE Urine Glucose (UA) NEG Urine Ketones NEG Urine Occult Blood NEG Urine Nitrite NEG Urine Bilirubin NEG Urine Urobilinogen LESS THAN 2.0 Urine Leukocyte Esterase NEG Urine RBC 2 Urine WBC LESS THAN 1 Urine Bacteria RARE Microscopic Urinalysis Comment CATH-CULTURE IND Date/Time Procedure Status Source Growth 04/13/17 05:50 Urine Culture Received Urine Catheterized Urine Pending Result Diagram: 04/13/17 033 Imaging Last Impressions Chest X-Ray 04/13/17331 Signed Impressions: Service Date/Time: April 03:29 - CONCLUSION: Streaky opacities present at the lung bases most characteristic of scarring and/or atelectasis. Dallin Landry MD Septic Shock Reassessment Peripheral Pulses: Weak Right Dorsalis Pedis Weak Left Dorsalis Pedis Weak Right Posterior Tibial Weak Left Posterior Tibial (bilateral posterior tibial biphasic Doppler ) Assessment and Plan Assessment and Plan Assessment STEMI Angina S/P left heart catheterization, PTCA RCA and placement of intra-aortic balloon pump CKD Stage 3 HTN Plan Plan by systems: Neurologic: -Morphine 1 mg every 2 hours when necessary for pain greater than 7/10 -Maintain Sleep hygiene Respiratory: -Bronchodilators every 4 hours when necessary for wheezing -Maintain O2 sat greater than 92%, currently O2 at 5 L/m -04/13 Chest [id number] scarring versus atelectasis -F/U CXR post placement of IABP -Obtain PFT's Cardiovascular: -IABP 1:1 -Follow-up CTS recommendations- Dr. Adorno -Obtain EKG - 04/13 F/U ECHO report -Status post left heart catheter-70% proximal LAD, 80% mid LAD, 95% proximal left circumflex, status post PTCA RCA from 100%-> 90% -Continue aspirin, initiated Coreg per Cardiology -Heparin 1000u/hr Renal: -Patient previously on hydrochlorothiazide, his CKD stage III -Maintain Dougherty catheter -- Strict I/Os FEN/GI: -NPO except meds -Protonix GI prophylaxis -Zofran for nausea -Obtain CMP -Obtain lipid panel, Hemoglobin A1c Heme/ID: -Monitor CBC, maintain hemoglobin of 10 -Obtain PT/ INR Endocrine: Glucose monitoring per ICU protocol -Obtain Hgb A1C -- SSI Prophylaxis: GI Prophylaxis Protonix DVT Prophylaxis -- SCDs Currently on heparin infusion Lines: Right groin femoral IABP, PIV's x 2 Dispo: This patient remains critically ill with one or more organ systems which are or may become a threat to life. I have spent in excess of 45 minutes discontinuously in the care and management of this patient. This time is exclusive of procedures, and includes, but is not limited to, evaluation of the patient, review of the medical record, discussions with family, consultants, nursing staff, or respiratory therapy, and documentation in the medical record. Code Status Full Discussed Condition With Patient, patient's daughter, Ms. Caldera (CV), Dr. Hanna and LIMB DRIVER at bedside Polina Maya MD Apr 13, 2017 08:49
[2017-04-13] MEDS ORDERED: RESP: ALBUTEROL 2.5 MG/IPRATROPIUM 0.5 MG NEB (PRN) NEB (09:00)
[2017-04-13] MEDS ORDERED: ONDANSETRON HCL 4 MG/2 ML VIAL IV PUSH PRN (09:00)
[2017-04-13] MEDS ORDERED: ASPIRIN 81 MG CHEW TAB PO SCH (09:00)
[2017-04-13] MEDS ORDERED: CARVEDILOL 3.125 MG TAB PO SCH (09:00)
[2017-04-13] MEDS: PANTOPRAZOLE SODIUM 40 MG VIAL IV PUSH SCH (09:02)
[2017-04-13] MEDS ORDERED: ceFAZolin 2 GM PREMIX 50 ML IV SCH (09:15)
[2017-04-13] MEDS ORDERED: DEXTROSE 50% IN WATER 50 ML VIAL(D50) IV PRN (09:15)
[2017-04-13] MEDS ORDERED: GLUCAGON 1 MG/ML VIAL OTHER PRN (09:15)
[2017-04-13] MEDS ORDERED: METOPROLOL TARTRATE 25 MG TAB PO SCH (09:15)
[2017-04-13] MEDS ORDERED: PAPAVERINE INJ 60 MG, NITROGLYCERIN INJ 100 MCG, DILTIAZEM INJ 100 MG in SODIUM CHLORID... IRRIGATION SCH (09:15)
[2017-04-13] MEDS ORDERED: CEFAZOLIN INJ 500 MG in SODIUM CHLORIDE 0.9% IRR BTL 500 ML IRRIGATION SCH (09:15)
[2017-04-13] MEDS ORDERED: INSULIN REGULAR (IV INFUSION) 100 UNITS in SODIUM CHLORIDE 0.9% INJ 100 ML IV SCH (09:15)
[2017-04-13] MEDS ORDERED: SODIUM CHLORIDE 0.9% FLUSH 10 ML FLUSH IV FLUSH PRN (09:15)
[2017-04-13] MEDS ORDERED: CHLORHEXIDINE GLUCONATE 4% SOLN 120 ML BTL TOPICAL SCH (09:15)
--- NOTE | 2017-04-13 09:38 | RADRPT ---
EXAM DATE/TIME: 04/13/2017 08:58 [facility] COMPARISON: CHEST SINGLE AP, April 13, 2017, 3:29. INDICATIONS : IABP Placement. MEDICAL HISTORY : None. SURGICAL HISTORY : None. ENCOUNTER: Subsequent ACUITY: 1 day PAIN SCORE: Non-responsive. LOCATION: Bilateral chest FINDINGS: Portable AP view of the chest demonstrates a normal-sized cardiac silhouette. There is a subtle tubul ar or cylindrical lucency overlying the left paraspinous region of the upper abdomen and lower chest visualized to approximately the left main bronchus. There is a subtle density overlying the proximal descending aorta which may represent the tip of the IABP. However, this finding is extremely subtle. Lungs are underinflated with bibasilar opacities similar to the earlier study. There is also question able opacity in the left upper lobe. No pneumothorax or pleural effusion is identified. CONCLUSION: 1. The IABP appears inflated but tip is not well seen. However, I believe it is located in the proxim al descending thoracic aorta. 2. Otherwise, stable examination with atelectasis versus consolidation at the lung bases and question able opacity in the left upper lobe. Paulie Bourgeois MD on April 13, 2017 at 9:29 Board Certified Radiologist. This report was verified electronically.
[2017-04-13 09:54] LABS: MEAN CELL VOLUME 89.1 FL (80.0-100.0); MEAN CORPUSCULAR HEMOGLOBIN 29.5 PG (27.0-34.0); MEAN CORPUSCULAR HGB CONC 33.2 % (32.0-36.0); PLATELET COUNT 416 TH/MM3 (150-450); RED BLOOD COUNT 4.93 MIL/MM3 (4.50-5.90); REVIEW FLAG FINAL; WHITE BLOOD COUNT 14.9 TH/MM3 (4.0-11.0)
[2017-04-13 09:59] LABS: APTT (PATIENT) 83.7 SEC (24.3-30.1)
[2017-04-13 10:08] LABS: ALT (GPT) 32 U/L (12-78); ANION GAP 8 MEQ/L (5-15); AST (GOT) 46 U/L (15-37); BICARBONATE 28.6 MEQ/L (21.0-32.0); BLOOD UREA NITROGEN 18 MG/DL (7-18); CHLORIDE 103 MEQ/L (98-107); GLOMERULAR FILTRATION RATE 62 ML/MIN (>89); MAGNESIUM 1.9 MG/DL (1.5-2.5); POTASSIUM 3.5 MEQ/L (3.5-5.1); SODIUM (NA) 140 MEQ/L (136-145)
[2017-04-13 10:13] LABS: ALKALINE PHOSPHATASE 62 U/L (45-117); HDL CHOLESTEROL 44.8 MG/DL (40.0-60.0); LDL CHOLESTEROL 67 MG/DL (0-99); TOTAL BILIRUBIN ADULT 0.6 MG/DL (0.2-1.0)
[2017-04-13 10:15] LABS: INTERNATIONAL NORMALIZED RATIO 1.1 RATIO; PROTHROMBIN TIME - PATIENT 11.7 SEC (9.8-11.6)
[2017-04-13] MEDS ORDERED: MORPHINE SULFATE 4 MG/ML INJ IV PRN (10:15)
[2017-04-13] MEDS: INSULIN ASPART SUPPLEMENTAL SCALE SQ SCH ×3 (10:20→20:29)
[2017-04-13] MEDS ORDERED: IOHEXOL 350 MG/ML 100 ML BTL (for Cath Lab) OTHER ONE (10:35)
[2017-04-13] MEDS ORDERED: IOHEXOL 350 MG/ML 50 ML BTL (for Cath Lab) OTHER ONE (10:35)
[2017-04-13 11:10] LABS: HEMOGLOBIN A1b 1.7 %; HEMOGLOBIN Ao 85.5 %; HEMOGLOBIN P3 3.8 %
--- NOTE | 2017-04-13 11:35 | RADRPT ---
EXAM DATE/TIME: 04/13/2017 10:08 [facility] COMPARISON: No previous studies available for comparison. INDICATIONS : Preop cardiac surgery. MEDICAL HISTORY : Hypercholesterolemia. Hypertension. Renal failure, chronic. Arthritis. Peripheral vascular disease. C oronary artery disease. SURGICAL HISTORY : Fusion, lumbar. ENCOUNTER: Initial ACUITY: 1 day PAIN SCORE: 3/10 LOCATION: Bilateral neck PEAK SYSTOLIC VELOCITIES (cm/sec): ICA/CCA RATIO: Right: 1.7 Left: 1.3 ICA: Right: 79 Left: 70 CCA: Right: 47 Left: 55 ECA: Right: 54 Left: 70 VERTEBRAL: Right: 90 antegrade Left: 41 antegrade Elevated flow velocities and ICA/CCA ratios have been found to correlate with increased degrees of vessel stenosis, calculated as percentage of diameter relative to a normal segment of distal ICA/CCA FINDINGS: RIGHT CAROTID: No significant stenosis is visualized. The waveforms are within normal limits. LEFT CAROTID: No significant stenosis is visualized. The waveforms are within normal limits. VERTEBRAL ARTERIES: Antegrade flow is seen in both vertebral arteries. MISCELLANEOUS: None. CONCLUSION: 1. Mild to moderate visible plaque formation noted especially on the left side. No hemodynamically si gnificant stenosis. Vertebral artery flow antegrade bilaterally. Gaudencio Blas MD on April 13, 2017 at 11:32 Board Certified Radiologist. This report was verified electronically.
--- NOTE | 2017-04-13 11:35 | RADRPT ---
EXAM DATE/TIME: 04/13/2017 10:39 [facility] COMPARISON: No previous studies available for comparison. INDICATIONS : Preop cardiac surgery. MEDICAL HISTORY : Hypercholesterolemia. Hypertension. Renal failure, chronic. Arthritis. Peripheral vascular disease. C oronary artery disease. SURGICAL HISTORY : Fusion, lumbar. ENCOUNTER: Initial ACUITY: 1 day PAIN SCORE: 3/10 LOCATION: Bilateral legs. GREATER SAPHENOUS VEIN THIGH: PROXIMAL: Right 4 mm Left 4 mm MID: Right 3 mm Left 3 mm DISTAL: Right 5 mm Left 3 mm CALF: PROXIMAL: Right 2 mm Left 3 mm MID: Right 2 mm Left 2 mm DISTAL: Right 2 mm Left 1 mm FINDINGS: The venous system of the lower extremities are patent by color Doppler imaging. Measurements of the leg veins (in mm) are listed above. CONCLUSION: Normal examination. Gaudencio Blas MD on April 13, 2017 at 11:33 Board Certified Radiologist. This report was verified electronically.
--- NOTE | 2017-04-13 11:35 | RADRPT ---
EXAM DATE/TIME: 04/13/2017 10:29 [facility] COMPARISON: No previous studies available for comparison. INDICATIONS : Preop cardiac surgery. MEDICAL HISTORY : Hypercholesterolemia. Hypertension. Renal failure, chronic. Arthritis. Peripheral vascular disease. C oronary artery disease. SURGICAL HISTORY : Fusion, lumbar. ENCOUNTER: Initial ACUITY: 1 day PAIN SCORE: 3/10 LOCATION: Bilateral legs. TECHNIQUE: Venous ultrasound of the left and right leg was performed from the inguinal ligament to the proximal calf. Real-time, color Doppler and spectral tracing, compression and augmentation techniques were us ed. FINDINGS: RIGHT LEG: There is normal compressibility of the deep venous system from the inguinal region to the proximal ca lf. No echogenic clot is seen in the lumen of the common femoral, femoral, popliteal, and posterior tibial veins. There is a normal response of the venous system to proximal and distal augmentation an d respiration. LEFT LEG: There is normal compressibility of the deep venous system from the inguinal region to the proximal ca lf. No echogenic clot is seen in the lumen of the common femoral, femoral, popliteal, and posterior tibial veins. There is a normal response of the venous system to proximal and distal augmentation an d respiration. CONCLUSION: Normal examination. Gaudencio Blas MD on April 13, 2017 at 11:33 Board Certified Radiologist. This report was verified electronically.
--- NOTE | 2017-04-13 11:48 | MB ---
cc: FCO FLORES MD DATE OF CONSULTATION: 04/13/2017 DATE OF : 1930 HISTORY OF PRESENT ILLNESS A 86-year-old male who presented to the emergency room last night after waking up about 02:30 in the morning with chest pain, 6 out of a 10. He had been having some dull pain off and on for the last 2 days. He is fairly active usually, normally works out at the [facility] on a regular basis. He presented with inferior wall ST-segment IA. He was taken directly to the labor relations specialist by Dr. Hanna and was found to have an 85% left main, 70% proximal LAD, 80% mid distal LAD, diagonal of 50, circ 95%, the RCA 100%. EF is pending as per the results of the echocardiogram. He also apparently went into V-fib arrest and was defibrillated x2. An intraaortic balloon pump was placed into the right groin and is now augmenting at a one-to-one. Pressure is stable with the balloon pump. He is now on a heparin drip. He is pain free and we were consulted to evaluate for coronary artery bypass grafting. PAST MEDICAL HISTORY 1. Hypertension. 2. Hyperlipidemia. 3. Depression. 4. Peripheral vascular disease. PAST SURGICAL HISTORY 1. Lumbar spinal surgery about 50 years ago. 2. Tonsillectomy. ALLERGIES He has no known allergies. MEDICATIONS Home meds include: 1. Hydrochlorothiazide. 2. Trazodone. 3. A statin. FAMILY HISTORY Mother from old age. Father from a stroke and IA in his 80s. SOCIAL HISTORY The patient is , lives with his daughter, has five children. No tobacco and/or alcohol. Retired from the food industry. REVIEW OF SYSTEMS GENERAL: No night sweats, fever, heat and cold intolerance. SKIN: No psoriasis, itching or hives. HEENT: No blurred vision. He does wear partial upper and lower dentures and glasses. NECK: Supple. No JVD. HEART: Heart sounds S1-S2, regular rate and rhythm. No audible rubs, murmurs, gallops. LUNGS: Diminished in the bases, otherwise clear to auscultation. ABDOMEN: Abdomen is soft, obese and nontender. No masses or organomegaly. EXTREMITIES: He does have some deformity to the lower feet. 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 He has Doppler pulses only to the post tib. The patient apparently walks occasionally with a cane, otherwise is fairly active. LABORATORY FINDINGS Shows hemoglobin 14, hematocrit of 44, white cell count 14, platelet count 416, sodium 140, potassium 3.5 which is being replaced, BUN of 18, creatinine 1.13, hemoglobin A1c is pending. Mag level is 1.9, AST 46, ALT 32, troponin 0.50, BNP of 45. Lipid panel pending. INR is 1.0. Urinalysis showed some rare urine bacteria. MRSA is pending. IMAGING STUDIES Chest x-ray showed some streaky opacities present at the lung bases most characteristic of some scarring. The IABP tip is obscured with the film, however, he does have good distal pulses with the Doppler, he does have the right groin approach. EKG Shows significant ST elevation in the inferior leads. IMPRESSION This is an acute ST-segment IA, inferior wall involvement. He did have some bradycardia, also V-fib arrest x2 which was successfully resuscitated. The patient has multivessel disease. The cardiac films will be evaluated by Dr. Fco Flores and evaluated for coronary artery bypass grafting. In the meantime he will have full workup to include carotid ultrasound, lower extremity ultrasounds, type and screen and evaluation for surgery as per Dr. Fco Flores, and timing as per his discretion. Also STS data will be calculated once we get the ejection fraction from the echocardiogram. Dictated by: JOVANY Cannon Fco GAY /10:12 AM /11:44 AM
--- NOTE | 2017-04-13 12:57 | ECHRPT ---
Indication: cardiomyopathy CONCLUSIONS Normal left ventricular size. Mild concentric left ventricular hypertrophy. The left ventricular systolic function is mildly reduced with an estimated ejection fraction in the range of 45- 50%. Trace mitral valve regurgitation. No aortic valve regurgitation. No aortic valve stenosis. There is mild tricuspid valve regurgitation. The estimated pulmonary arterial pressure is __32 mmHg. The pulmonary valve is not well visualized. Technically difficult study. BP: / HR: Rhythm: MEASUREMENTS (Male / Female) Normal Values Technical Quality:Technically difficult study 2D ECHO LV Diastolic Diameter PLAX 4.3 cm 4.2 - 5.9 / 3.9 - 5.3 cm LV Systolic Diameter PLAX 3.8 cm IVS Diastolic Thickness 1.5 cm 0.6 - 1.0 / 0.6 - 0.9 cm LVPW Diastolic Thickness 1.3 cm 0.6 - 1.0 / 0.6 - 0.9 cm LV Relative Wall Thickness 0.7 RV Internal Dim ED PLAX 3.3 cm M-MODE Aortic Root Diameter MM 3.5 cm LA Systolic Diameter MM 4.6 cm LA Ao Ratio MM 1.3 AV Cusp Separation MM 2.4 cm DOPPLER Mitral E Point Velocity 50.8 cm/s Mitral A Point Velocity 54.8 cm/s Mitral E to A Ratio 0.9 LV E' Lateral Velocity 7.5 cm/s Mitral E to LV E' Lateral Ratio 6.8 LV E' Septal Velocity 3.9 cm/s Mitral E to LV E' Septal Ratio 13.0 TR Peak Velocity 235.0 cm/s TR Peak Gradient 22.1 mmHg FINDINGS LEFT VENTRICLE Normal left ventricular size. Mild concentric left ventricular hypertrophy. The left ventricular systolic function is mildly reduced with an estimated ejection fraction in the range of 45- 50%. RIGHT VENTRICLE Normal right ventricular size and systolic function. LEFT ATRIUM The left atrial size is normal. RIGHT ATRIUM The right atrial size is normal. ATRIAL SEPTUM Normal atrial septal thickness without atrial level shunting by limited color doppler interrogation. AORTA The aortic root and proximal ascending aorta are normal in size on limited imaging. MITRAL VALVE Structurally normal mitral valve. Trace mitral valve regurgitation. AORTIC VALVE Trileaflet aortic valve. No aortic valve regurgitation. No aortic valve stenosis. TRICUSPID VALVE Structurally normal tricuspid valve. There is mild tricuspid valve regurgitation. The estimated pulmonary arterial pressure is __32 mmHg. PULMONARY VALVE The pulmonary valve is not well visualized. VESSELS The inferior vena cava is normal in size. PERICARDIUM No pericardial effusion. Oracio Minor MD, FACC (Electronically Signed) Final Date:13 April 2017 12:56 Amended: 13 April 2017 12:58
--- NOTE | 2017-04-13 17:00 | PD.CAR.PN ---
CVT Progress Note Subjective/Hospital Course: sts discussed with pt RISK SCORES About the STS Risk Calculator Procedure: CAB Only Risk of Mortality: 4.872% Morbidity or Mortality: 34.152% Long Length of Stay: 14.75% Short Length of Stay: 17.698% Permanent Stroke: 1.801% Prolonged Ventilation: 28.163% DSW Infection: 0.68% Renal Failure: 7.798% Reoperation: 10.261% Objective: Vital Signs Date Time Temp Pulse Resp B/P Pulse Ox O2 Delivery O2 Flow Rate FiO2 04/13/17 16:00 97.7 57 25 137/79 97 04/13/17 16:00 53 04/13/17 16:00 04/13/17 15:30 54 22 98 04/13/17 15:00 56 26 131/76 95 04/13/17 15:00 04/13/17 14:30 57 23 95 04/13/17 14:00 04/13/17 14:00 70 19 145/90 97 04/13/17 14:00 56 04/13/17 13:30 58 17 97 04/13/17 13:01 18 04/13/17 13:00 04/13/17 13:00 58 17 125/87 97 04/13/17 12:30 56 15 97 04/13/17 12:00 97.4 56 16 145/83 97 04/13/17 12:00 58 04/13/17 12:00 93/80 04/13/17 11:30 56 17 98 04/13/17 11:00 56 17 119/77 97 04/13/17 11:00 86/80 04/13/17 10:30 57 19 98 04/13/17 10:06 16 04/13/17 10:00 56 21 115/81 97 04/13/17 10:00 81/71 04/13/17 10:00 51 04/13/17 09:30 56 21 98 04/13/17 09:00 56 19 120/68 98 04/13/17 09:00 04/13/17 08:30 60 17 99 04/13/17 08:30 98 Nasal Cannula 5.00 04/13/17 08:00 60 04/13/17 08:00 98.1 60 22 121/68 98 04/13/17 08:00 83/75 04/13/17 07:30 65 22 98 04/13/17 07:00 85/76 04/13/17 07:00 67 20 116/65 100 04/13/17 06:30 68 15 100 04/13/17 06:00 74 18 120/58 100 04/13/17 06:00 73 04/13/17 03:57 78 20 140/93 98 Nasal Cannula 2 04/13/17 03:45 42 18 137/78 98 Nasal Cannula 2 04/13/17 03:30 100 2.00 04/13/17 03:30 100 Nasal Cannula 2.00 04/13/17 03:29 41 18 99 Nasal Cannula 2 04/13/17 03:29 99 Nasal Cannula 2 04/13/17 03:29 98 Nasal Cannula 2 04/13/17 03:29 97.7 45 18 147/81 99 Nasal Cannula 2 Labs: Laboratory Tests Test 04/13/17 04/13/17 04/13/17 04/13/17 05:50 09:20 09:27 15:50 Urine Color YELLOW (YELLW/STRAW) Urine Turbidity CLEAR (CLEAR) Urine pH 5.0 (5.0-8.5) Urine Specific Agness GREATER THAN 1.050 (1.002-1.035) Urine Protein TRACE mg/dL (NEG-TRACE) Urine Glucose (UA) NEG mg/dL (NEG) Urine Ketones NEG mg/dL (NEG) Urine Occult Blood NEG (NEG) Urine Nitrite NEG (NEG) Urine Bilirubin NEG (NEG) Urine Urobilinogen LESS THAN 2.0 MG/DL (LESS THAN 2.0) Urine Leukocyte Esterase NEG (NEG) Urine RBC 2 /hpf (0-3) Urine WBC LESS THAN 1 /hpf (0-5) Urine Bacteria RARE /hpf (NONE) Microscopic Urinalysis Comment CATH-CULTURE IND Nasal Screen MRSA (PCR) MRSA NOT DETECTED (NOT DETECT) White Blood Count 14.9 TH/MM3 (4.0-11.0) Red Blood Count 4.93 MIL/MM3 (4.50-5.90) Hemoglobin 14.6 GM/DL (13.0-17.0) Hematocrit 44.0 % (39.0-51.0) Mean Corpuscular Volume 89.1 FL (80.0-100.0) Mean Corpuscular Hemoglobin 29.5 PG (27.0-34.0) Mean Corpuscular Hemoglobin 33.2 % Concent (32.0-36.0) Red Cell Distribution Width 15.0 % (11.6-17.2) Platelet Count 416 TH/MM3 (150-450) Mean Platelet Volume 9.6 FL (7.0-11.0) Prothrombin Time 11.7 SEC (9.8-11.6) Prothromb Time International 1.1 RATIO Ratio Activated Partial 83.7 SEC 45.0 SEC Thromboplast Time (24.3-30.1) (24.3-30.1) Sodium Level 140 MEQ/L (136-145) Potassium Level 3.5 MEQ/L (3.5-5.1) Chloride Level 103 MEQ/L (98-107) Carbon Dioxide Level 28.6 MEQ/L (21.0-32.0) Anion Gap 8 MEQ/L (5-15) Blood Urea Nitrogen 18 MG/DL (7-18) Creatinine 1.13 MG/DL (0.60-1.30) Estimat Glomerular Filtration 62 ML/MIN (>89) Rate Random Glucose 111 MG/DL (74-106) Hemoglobin A1c 5.3 % (4.3-6.0) Calcium Level 9.5 MG/DL (8.5-10.1) Phosphorus Level 3.0 MG/DL (2.5-4.9) Magnesium Level 1.9 MG/DL (1.5-2.5) Total Bilirubin 0.6 MG/DL (0.2-1.0) Aspartate Amino Transf 46 U/L (15-37) (AST/SGOT) Alanine Aminotransferase 32 U/L (12-78) (ALT/SGPT) Alkaline Phosphatase 62 U/L (45-117) Total Protein 6.5 GM/DL (6.4-8.2) Albumin 3.4 GM/DL (3.4-5.0) Triglycerides Level 82 MG/DL (42-150) Cholesterol Level 126 MG/DL (120-200) LDL Cholesterol 66 MG/DL (0-99) HDL Cholesterol 44.0 MG/DL (40.0-60.0) Cholesterol/HDL Ratio 2.86 RATIO Blood Type O POSITIVE O POSITIVE Antibody Screen NEGATIVE Crossmatch Leukocyte-Reduced Red Blood Cells Blood Bank Comment Result Diagram: 04/13/1791904/13/17919 (1) STEMI (ST elevation myocardial infarction) Plan: Stable s/p PTCA of occluded proximal RCA to re-establish flow and s/p placement IABP. LAD, left circumflex, and probably left main also with severe disease. Echo pending to assess LV function. Groin stable. No further angina. BP better. REC await cardiothoracic surgery consult, await echo as BP better, will try to start low dose beta daniella continue heparin drip, aspirin (2) Hypertension Plan: Transiently hypotensive after cath, now normotensive. Continue to monitor. (3) Hyperlipidemia Plan: Awaiting lipid profile. Continue statin. Problem Qualifiers (1) STEMI (ST elevation myocardial infarction): Qualified Code: I21.19 - ST elevation myocardial infarction (STEMI) involving other coronary artery of inferior wall (2) Hypertension: Qualified Code: I10 - Essential hypertension (3) Hyperlipidemia: Qualified Code: E78.5 - Hyperlipidemia, unspecified hyperlipidemia type Britany Caldera Apr 13, 2017 17:00
[2017-04-13] MEDS: SODIUM CHLORIDE 0.9% FLUSH 10 ML FLUSH IV FLUSH SCH (20:29)
[2017-04-13] MEDS: ATORVASTATIN 40 MG TAB PO SCH (20:29)
[2017-04-13] MEDS ORDERED: CHLORHEXIDINE GLUCONATE 4% SOLN 120 ML BTL TOPICAL ONE (22:00)
[2017-04-13 23:36] LABS: APTT (PATIENT) 40.6 SEC (24.3-30.1)
[2017-04-14] VITALS (21 sets, daily range): BP systolic 59–148; BP diastolic 44–78; PULSE 56–75; RESP 15–35; TEMP 98.4–99.2; O2SAT 90–100
[2017-04-14] MEDS: CHLORHEXIDINE GLUCONATE 2 % 1 PACK (2 CLOTHS)(taper/protocol) TOPICAL SCH (01:07)
[2017-04-14 04:36] LABS: AUTOMATED NEUTROPHIL # 14.2 TH/MM3 (1.8-7.7); BASOPHIL # 0.1 TH/MM3 (0-0.2); BASOPHIL % 0.3 % (0.0-2.0); EOSINOPHIL % 0.2 % (0.0-4.0); HEMATOCRIT 43.8 % (39.0-51.0); HEMO FLAGS DIFF FINAL; LYMPH % 5.1 % (9.0-44.0); LYMPHOCYTE # 0.8 TH/MM3 (1.0-4.8); MEAN CELL VOLUME 89.5 FL (80.0-100.0); MEAN CORPUSCULAR HEMOGLOBIN 30.5 PG (27.0-34.0); MONO % 6.8 % (0.0-8.0); NEUT % 87.6 % (16.0-70.0); PLATELET COUNT 354 TH/MM3 (150-450); RED BLOOD COUNT 4.89 MIL/MM3 (4.50-5.90); RED CELL DISTRIBUTION WIDTH 14.9 % (11.6-17.2); WHITE BLOOD COUNT 16.2 TH/MM3 (4.0-11.0)
[2017-04-14] MEDS ORDERED: CALCIUM CHLORIDE 10% SOLN 1 GRAM/10 ML SYR IV ONE (05:00)
[2017-04-14] MEDS ORDERED: PROTAMINE SULFATE 250 MG/25 ML VIAL IV ONE (05:00)
[2017-04-14] MEDS ORDERED: MAGNESIUM SULFATE 1000 MG/2 ML VIAL (PED) IV ONE (05:00)
[2017-04-14] MEDS ORDERED: HEPARIN SODIUM - SQ 10,000 UNITS/ML VIAL SQ ONE (05:00)
[2017-04-14] MEDS ORDERED: AMINOCAPROIC ACID INJ 250 MG/ML 20 ML VIAL IV ONE (05:00)
[2017-04-14] MEDS ORDERED: METOPROLOL TARTRATE 5 MG/5 ML VIAL IV PUSH ONE (05:00)
[2017-04-14 05:01] LABS: BICARBONATE 30.8 MEQ/L (21.0-32.0); POTASSIUM 3.4 MEQ/L (3.5-5.1)
[2017-04-14 05:16] LABS: HDL CHOLESTEROL 45.4 MG/DL (40.0-60.0)
[2017-04-14 05:31] LABS: CKMB 154.8 NG/ML (0.5-3.6)
[2017-04-14] MEDS: INSULIN ASPART SUPPLEMENTAL SCALE SQ SCH (05:43)
[2017-04-14] MEDS ORDERED: CARVEDILOL 3.125 MG TAB PO ONE (06:00)
[2017-04-14] MEDS ORDERED: VANCOMYCIN HCL 1000 MG VIAL ONE ×2 (06:30→11:23)
[2017-04-14] MEDS ORDERED: ceFAZolin 2 GM PREMIX 50 ML ONE (06:30)
[2017-04-14] MEDS ORDERED: HEPARIN SODIUM - SQ 10,000 UNITS/ML VIAL ONE ×2 (06:30)
[2017-04-14] MEDS ORDERED: POTASSIUM CHLORIDE 40 MEQ/20 ML VIAL ONE (07:23)
[2017-04-14] MEDS ORDERED: LACTATED RINGER'S 1000 ML INJ 1,000 ML IV ONE (08:12)
[2017-04-14] MEDS ORDERED: SODIUM CHLOR 0.9% 250 ML INJ 750 ML IV ONE (08:13)
[2017-04-14] MEDS ORDERED: NORMOSOL R INJ 1,000 ML IV ONE (08:13)
[2017-04-14] MEDS ORDERED: SODIUM CHLORID 0.9% 500 ML INJ 500 ML IV ONE (08:13)
[2017-04-14] MEDS: PANTOPRAZOLE SODIUM 40 MG VIAL IV PUSH SCH (09:00)
--- NOTE | 2017-04-14 09:31 | EKG ---
Date Performed: 04/13/2017 Time Performed: 03:33:08 PTAGE: 86 years EKG: Sinus bradycardia Marked left axis deviation Incomplete right bundle branch block ST elevat ion, consider inferior injury ACUTE [place] NO PRIOR TRACING DOCTOR: Cade Wolf Interpretating Date/Time 04/14/2017 09:30:34
[2017-04-14] MEDS ORDERED: DEXMEDETOMIDINE HCL 200 MCG/2 ML VIAL ONE (09:54)
[2017-04-14] MEDS ORDERED: SODIUM CHLORIDE 0.9% INJ 50 ML ONE (09:54)
[2017-04-14] MEDS ORDERED: ceFAZolin INJ 1,000 MG VIAL ONE (11:23)
[2017-04-14] MEDS ORDERED: LACTATED RINGER'S 1000 ML INJ 500 ML IV PRN (11:58)
[2017-04-14] MEDS ORDERED: METOPROLOL TARTRATE 5 MG/5 ML VIAL IV PUSH PRN (12:00)
[2017-04-14] MEDS ORDERED: DEXMEDETOMIDINE INJ 200 MCG in SODIUM CHLORIDE 0.9% INJ 50 ML IV SCH (12:00)
[2017-04-14] MEDS ORDERED: RESP: ALBUTEROL 2.5 MG/IPRATROPIUM 0.5 MG NEB (PRN) NEB (12:00)
[2017-04-14] MEDS ORDERED: ONDANSETRON HCL 4 MG/2 ML VIAL IV PUSH PRN (12:00)
[2017-04-14] MEDS ORDERED: POTASSIUM CHLORIDE 20 MEQ CONTROLLED RELEASE TAB PO PRN ×2 (12:00)
[2017-04-14] MEDS ORDERED: DOPamine INJ PREMIX 500 ML IV SCH (12:00)
[2017-04-14] MEDS ORDERED: ACETAMINOPHEN 325 MG TAB PO PRN (12:00)
[2017-04-14] MEDS ORDERED: SODIUM CHLORIDE 0.9% FLUSH 10 ML FLUSH IV FLUSH PRN (12:00)
[2017-04-14] MEDS ORDERED: SODIUM CHLORIDE 0.9% FLUSH 10 ML FLUSH IV FLUSH SCH (12:00)
[2017-04-14] MEDS ORDERED: CALCIUM CHLORIDE 10% 1 GRAM/10 ML VIAL IV PRN (12:00)
[2017-04-14] MEDS ORDERED: ACETAMINOPHEN 650 MG SUPP RECTAL PRN (12:00)
[2017-04-14] MEDS ORDERED: hydrALAZINE HCL 20 MG/ML VIAL IV PRN (12:00)
[2017-04-14] MEDS ORDERED: Post-op Orders (for Pharmacy) MISC OTHER ONE (12:00)
[2017-04-14] MEDS ORDERED: POTASSIUM CHLOR 20 MEQ PREMIX 100 ML IV PRN (12:00)
[2017-04-14] MEDS ORDERED: MORPHINE SULFATE 4 MG/ML INJ IV PRN (12:00)
[2017-04-14] MEDS ORDERED: MAGNESIUM SULFATE INJ 2 GM in SODIUM CHLORIDE 0.9% INJ 100 ML IV PRN ×4 (12:00)
[2017-04-14] MEDS ORDERED: CLEVIDIPINE INJ 50 ML IV SCH (12:00)
[2017-04-14] MEDS ORDERED: CALCIUM CHLORIDE INJ 1 GM in SODIUM CHLORIDE 0.9% INJ 100 ML IV PRN (12:00)
[2017-04-14] MEDS ORDERED: RESP: RACEPINEPHRINE 2.25% 0.5 ML NEB NEB PRN (12:00)
[2017-04-14] MEDS ORDERED: NITROGLYCERIN-DEXTROSE INJ 250 ML IV SCH (12:00)
[2017-04-14] MEDS ORDERED: ACETAMINOPHEN/HYDROcodone 325 MG/5 MG TAB PO PRN (12:00)
[2017-04-14] MEDS ORDERED: DEXTROSE 50% IN WATER 50 ML VIAL(D50) IV PUSH PRN (12:00)
[2017-04-14] MEDS ORDERED: MEPERIDINE HCL 25 MG/ML VIAL IV PRN (12:00)
--- NOTE | 2017-04-14 12:03 | HHI.CCPN ---
Subjective Remarks/Hospital Course 86-year-old male arrives by EMS. He's had chest pain intermittently for the past 2 days. Pain became much worse this evening and he called EMS. He's had no shortness of breath. There is no pleuritic chest pain. For the last few months he has been working out at the [employer] gym fairly intensely. Patient has history of hypertension. He has no history of hyperlipidemia or diabetes. He is a history of coronary artery disease. EMS EKG concerning for inferior wall RI. In the ER the patient states his chest pain is 7/10 in severity. STEMI alert activated upon the patient's arrival. The patient emergently went left heart catheterization with PTCA of the right coronary artery and intra-aortic balloon pump placement. Upon evaluation the patient was noted to have left main 85% occlusion, proximal LAD 70% occlusion, mid LAD 80% occlusion, with RCA 100% excluded status post PCI 90% occlusion. During the procedure the patient had V. fib arrest 2, defibrillations with resolution. Subjective: 04/14: No acute events overnight. Patient did have a period of confusion of note this patient has been awake for approximately 24 hours,hospital initial signs of delirium. The patient remains hemodynamically stable IABP 1:1, labs within normal limits in preparation for CABG this a.m.. Objective Vital Signs Date Time Temp Pulse Resp B/P Pulse Ox O2 Delivery O2 Flow Rate FiO2 04/14/17 07:00 98 Nasal Cannula 5.00 04/14/17 07:00 04/14/17 06:00 98.9 65 35 Intake and Output 04/13/17 04/13/17 04/14/17 08:00 16:00 00:00 Intake Total 1200 ml 780 ml 837 ml Output Total 320 ml 235 ml 320 ml Balance 880 ml 545 ml 517 ml Result Diagram: 04/14/17 0354 04/14/17 0354 Imaging Last Impressions Chest X-Ray 04/13/17 033 Signed Impressions: Service Date/Time: April 03:29 - CONCLUSION: Streaky opacities present at the lung bases most characteristic of scarring and/or atelectasis. Dallin Landry MD Objective Remarks GENERAL: Alert oriented, elderly gentleman in no acute distress SKIN: Warm and dry. HEAD: Atraumatic. Normocephalic. EYES: Pupils equal and round. No scleral icterus. No injection or drainage. ENT: No nasal bleeding or discharge. Mucous membranes pink and moist. NECK: Trachea midline. No JVD. CARDIOVASCULAR: Normal rate, regular rhythm. RESPIRATORY: No accessory muscle use. Clear to auscultation. Breath sounds equal bilaterally. GASTROINTESTINAL: Abdomen soft, non-tender, nondistended. No guarding. MUSCULOSKELETAL: Extremities without clubbing, cyanosis, or edema. No obvious deformities. Right femoral dressing patent without erythema or drainage NEUROLOGICAL: Awake and alert. RASS 0. No gross focal/sensory deficits. Follows commands in all 4 extremities. Procedures CABG A/P Assessment and Plan Assessment STEMI Angina S/P left heart catheterization, PTCA RCA and placement of intra-aortic balloon pump CKD Stage 3 HTN Plan Plan by systems: Neurologic: -Morphine 1 mg every 2 hours when necessary for pain greater than 7/10 -Maintain Sleep hygiene -May consider melatonin 5 mg daily at bedtime when necessary for insomnia Respiratory: -Bronchodilators every 4 hours when necessary for wheezing -Maintain O2 sat greater than 92%, currently O2 at 5 L/m -04/13 Chest s-kee-Widewqwyh scarring versus atelectasis Cardiovascular: -IABP 1:1 -Follow-up CTS recommendations- Dr. Adorno-planned CABG this a.m. - 04/13 F/U ECHO report -Status post left heart catheter-70% proximal LAD, 80% mid LAD, 95% proximal left circumflex, status post PTCA RCA from 100%-> 90% -Continue aspirin, initiated Coreg per Cardiology -Heparin 1000u/hr Renal: -Patient previously on hydrochlorothiazide, his CKD stage III -Maintain Dougherty catheter -- Strict I/Os FEN/GI: -NPO except meds -Protonix GI prophylaxis -Zofran for nausea -Obtain CMP - lipid panel, Hemoglobin A1c- WNL Heme/ID: -Monitor CBC, maintain hemoglobin of 10 -Type and cross - PT/ INR- WNL Endocrine: Glucose monitoring per ICU protocol -Hgb A1C 5.3 -- SSI Prophylaxis: GI Prophylaxis Protonix DVT Prophylaxis -- SCDs Currently on heparin infusion Lines: Right groin femoral IABP, PIV's x 2 Dispo: Plan for CABG this a.m., discussion with family/daughters and patient. All questions answered. This patient remains critically ill with one or more organ systems which are or may become a threat to life. I have spent in excess of 20 minutes discontinuously in the care and management of this patient. This time is exclusive of procedures, and includes, but is not limited to, evaluation of the patient, review of the medical record, discussions with family, consultants, nursing staff, or respiratory therapy, and documentation in the medical record. Physician Polina Linares MD Apr 14, 2017 12:03
--- NOTE | 2017-04-14 12:24 | HHI.FF ---
Face to Face Verification Diagnosis: (1) Hyperlipidemia (2) Hypertension (3) STEMI (ST elevation myocardial infarction) (4) S/P CABG x 3 Physical Therapy Order: Evaluate and Treat Home Health Nursing Order: Signs/symptoms of disease process CHF education Wound care and dressing changes Nursing assessment with vital signs Instructions: Heart and Vascular Surgery patients *Special attention to sternal dressing Mandatory frequency Assess and evaluation, 4 days in a row The next week 3X week 2 times a week for 4 weeks 1 time a week for 5 weeks Schedule Heart and Vascular patients for full 60 day certification period Initial visit Review Open Heart Surgery Discharge Instructions (Sternal precautions, Activity, Elastic hose, Incision care, Driving, Incentive spirometry, Smoking, [place], Work and other) Need Betadine to paint incision Medication reconciliation Importance of follow up care/ check on appointments Make calendar record temperature daily When to call [facility] nurse, review instructions, phone list Incentive Spirometry, demonstration Visit 1- Begin discharge instruction for patient family and/ or caregiver using teach back method- Signs and symptoms of infection Disease characteristics Medicines and side effects Foods and nutrition/ appetite Infection control/ hand washing/ hygiene Visit 2- Continue teaching Discharge instructions- include additional information on smoking cessation , sternal dressing (sternal vac) Visit 3- Continue teaching- Cough and deep breathing, incision monitoring. Choose my plate Visit 4- Continue teaching- Discuss limitations Discuss how they are feeling Discuss progress toward goals Remaining visits- continue teaching and monitoring PREVENA Single Use Negative Wound Therapy System Caregiver Instruction Sheet 1. A Prevena dressing system was applied to the chest incision during surgery , to promote wound healing. It works via a suction device (negative pressure wound therapy) to remove low to moderate levels of exudate (drainage) and infectious materials. We recommend that the device stay in place for up to seven days, from day of surgery. 2. Day of Surgery___/12/26 Day of Removal ___04/21/17 3. The dressing should only be removed by a health care manager cna. Please arrange removal of device to coincide with Home Health visit and or with Nursing staff at Rehab 4. If skin reddening or irritation of skin occurs, or excessive drainage, please notify the Cardiovascular Surgeons office at [phone]. 5. Light showering is permissible; however the pump should be disconnected and placed in safe location, where it will not get wet. The dressing should not be exposed to direct spray or submerged in water. No bath tub / shower only. Ensure the end of the tubing attached to the dressing is facing down so that water does not enter the top of the tube. 6. To remove Prevena dressing: press purple button to turn off device / remove the suction. Then disconnect the tubing from the pump. The fixation strips should be stretched away from the skin and the dressing lifted at one corner and peeled back until it has been fully removed. 7. After removal, it is ok to shower daily using liquid dial soap and clean wash cloth, rinse and pat dry, and leave incision open to air dry. For any concerns regarding Prevena dressing, and or wounds, please contact Radha Mora, patient navigator at [phone] or notify the Cardiovascular Surgeons office at [phone]. Incentive spirometry Q1 hr x 10, while awake, also use acapella device hourly whole awake Sternal Breast Bone Precautions: NO pushing or pulling, ( pt must use sternal pillow to support chest with all activities and with coughing ( takes up to 3 months breast bone to heal ) All females to wear sternal bra , launder as needed Daily incision care: ok to shower daily, no tub bath. Wash all incisions with liquid dial soap, clean wash cloth to each site, rinse and pat dry. Observe for any signs of infection, such as drainage which is dark yellow, regan, green or foul smelling. Immediately report to the surgeon any drainage from the chest incision, or legs, and for any abnormal drainage from the chest tube sites. Notify surgeon if any temp >101.5 degrees F. When specialty dressing removed/ or if you do not have one, continue to shower daily as above, then rinse and pat incision dry and paint with betadine daily x 5 days. Allow steri strips to fall off if you have any. Avoid lotions, creams, salves, oils, etc. for the first month Please see attached forms for additional instructions regarding post Open Heart specialty wound vacuum dressings. MJ or Prevena , Dressing to be removed by Nursing staff on _04/21/17 F/U appointment: as per DC instructions: PCP in 2 weeks, CV surgeon 2 weeks, [employer] Developer 3-4 weeks For any questions regarding incisions/ dressing / meds / post op care or above Symptoms, Monday 8am-5pm Heart & Vascular Surgery Office ( Dr. Adorno & Dr. Mendes), After Hours / Nights (5pm -8am) Weekends and Holidays Please call [facility] Card[facility] ([facility]) Charge Nurse I have seen patient Petar Gonzalez on 04/14/17. My clinical findings support the need for the requested home health care services because: Deconditioned w/ increased weakness I certify that my clinical findings support that this patient is homebound because: Post-op weakness Britany Caldera Apr 14, 2017 12:24
--- NOTE | 2017-04-14 12:38 | PD.OP ---
cc: Avis Adorno MD; Fransisco Hanna MD Operative Report Date of Surgery: Apr 14, 2017 Preoperative Diagnosis: Postoperative Diagnosis: Procedure: 1. Urgent Off-pump Coronary Artery Bypass Grafting x 3 with Left Internal Mammary Artery (MAST) to Left Anterior Descending (LAD), reverse saphenous vein graft to the Posterolateral branch of the Right Coronary Artery (RPLB), sequential reverse saphenous vein graft to the Obtuse Marginal 1 branche of the Circumflex artery 2. Left Leg Endoscopic Vein [place] 3. Intraoperative Vein Mapping. Surgeon: Avis Adorno Conduit Cleaner(s): iRchard Perkins Operation and Findings: PREPROCEDURE DIAGNOSES 1. Severe Multi Vessel Coronary Artery Disease. 2. Acute Myocardial Infarction (STEMI) 3. Severe Left Ventricular Dysfunction (EF 25%) 4. IABP Circulatory Support 5. Ventricular Fibrillation 6. Atrial Fibrillation POSTPROCEDURE DIAGNOSES Same SURGICAL PROCEDURE 1. Urgent Off-pump Coronary Artery Bypass Grafting x 3 with Left Internal Mammary Artery (MAST) to Left Anterior Descending (LAD), reverse saphenous vein graft to the Posterolateral branch of the Right Coronary Artery (RPLB), sequential reverse saphenous vein graft to the Obtuse Marginal 1 branche of the Circumflex artery 2. Left Leg Endoscopic Vein [place] 3. Intraoperative Vein Mapping. SURGEON Avis Adorno MD INVESTIGATIONS CONSULTANT ASHLEE Nuno ANESTHESIA General endotracheal MANAGER TRAINING ASHLEY Boykin MD PREPARATION ChloraPrep. COUNTS Needle, sponge, and instrument counts were correct. DRAINS Two 32-[place]og[place] mediastinal tubes. COMPLICATIONS None. INDICATIONS FOR PROCEDURE The patient is a 86-year-old presenting with chest pain. Patient was noted to have multi-vessel coronary artery disease in the setting of a STEMI. The patient is being brought to the operating room for urgent surgical revascularization therapy. PROCEDURE Patient was brought to the operating room and placed supine on the OR table. Following the induction of adequate general endotracheal anesthesia and placement of appropriate monitoring devices, intraoperative vein mapping was performed which revealed suitable-caliber conduit in bilateral lower extremities. Intraoperative RONDA revealed severe LV dysfunction with global hypokinesis and a large dilated heart. There was also noted to be clot in the left atrial appendage. The patient was then prepped and draped in standard sterile fashion. Next, 2500 units of intravenous heparin was given. The left greater saphenous vein was harvested endoscopically. This appeared to be a small but useable-caliber conduit. Simultaneously, a median sternotomy was performed and the left internal mammary artery dissected free off the posterior sternal table. The patient was systemically heparinized and anticoagulation monitored by serial ACT measurements. The internal mammary artery had good pulsatile flow in it and was a good-caliber conduit. The pericardium was then divided in the midline, the cradle created and targets analyzed. At this point, all anastomoses were performed in a beating-heart fashion using the [employer] stabilizing system. The left internal mammary artery was anastomosed to the mid LAD (2 mm) in an end-to-side fashion using 7-0 Prolene. Segment of saphenous vein graft was then anastomosed to the RPLB (1.5 mm) in an end-to-side fashion using 7-0 Prolene. The final segment was anastomosed to the OM1 (1.75 mm) in an end-to-side fashion using a running 7-0 Prolene. The proximal anastomoses were then constructed to the ascending aorta in a running manner using 6-0 Prolene. All anastomotic sites were inspected and appeared to be hemostatic and patent. Protamine solution was given. Strict hemostasis was assured. The closure was undertaken. 2 chest tubes were placed. The pericardium was reapproximated in the midline. The sternum was approximated using sternal wires. The muscular and fascial layer were then closed in 3 layers. The endoscopic vein harvest site was closed in 2 layers. The patient tolerated the procedure well and was transferred to CVICU in stable condition. Avis Adorno MD Apr 14, 2017 12:38
[2017-04-14] MEDS ORDERED: EPINEPHrine (1:1000) INJ 4 MG in DEXTROSE 5% IN WATER INJ 246 ML IV SCH ×2 (13:00)
[2017-04-14] MEDS ORDERED: MIDAZOLAM HCL 5 MG/5 ML VIAL ONE ×2 (13:14→13:16)
[2017-04-14] MEDS ORDERED: fentaNYL CITRATE 1000 MCG/20 ML VIAL ONE (13:14)
--- NOTE | 2017-04-14 13:36 | RADRPT ---
EXAM DATE/TIME: 04/14/2017 13:04 [facility] COMPARISON: CHEST SINGLE AP, April 13, 2017, 8:58. INDICATIONS : Post CABG. MEDICAL HISTORY : None. SURGICAL HISTORY : CABG. ENCOUNTER: Subsequent ACUITY: 2 days PAIN SCORE: Non-responsive. LOCATION: Bilateral chest FINDINGS: ET tube, nasogastric tube and chest tubes are in good position. Central line is in the right atrium. There is elevation of the right hemidiaphragm. Sternal wires are noted. There is minimal prominen ce of the mediastinum. CONCLUSION: Support apparatus as described above. There is no pneumothorax. James Griggs MD FACR on April 14, 2017 at 13:32 Board Certified Radiologist. This report was verified electronically.
[2017-04-14] MEDS: ASPIRIN 81 MG CHEW TAB PO SCH (14:00)
[2017-04-14] MEDS ORDERED: INSULIN REGULAR (IV INFUSION) 100 UNITS in SODIUM CHLORIDE 0.9% INJ 99 ML IV SCH (14:00)
[2017-04-14] MEDS: ALBUMIN HUMAN 5% 12.5 GM/250 ML BOTTLE IV PRN ×2 (14:12→14:27)
[2017-04-14] MEDS: POTASSIUM CHLOR 20 MEQ PREMIX 100 ML IV PRN ×3 (14:12→21:00)
[2017-04-14] MEDS: ACETAMINOPHEN 1000 MG/100 ML VIAL IV SCH ×2 (14:14→20:58)
[2017-04-14] MEDS ORDERED: DEXTROSE 50% IN WATER 50 ML SYRINGE ONE (14:21)
--- NOTE | 2017-04-14 14:28 | EKG ---
Date Performed: 04/13/2017 Time Performed: 12:11:45 PTAGE: 86 years EKG: SINUS BRADYCARDIA WITH OCCASIONAL SUPRAVENTRICULAR PREMATURE COMPLEXES PATTERN CONSISTENT W ITH PULMONARY DISEASE INCOMPLETE RIGHT BUNDLE BRANCH BLOCK INFERIOR MYOCARDIAL INFARCTION , OF INDETE RMINATE AGE ABNORMAL ECG Since PREVIOUS TRACING , no significant change noted PREVIOUS TRACING 04/13/2017 03.33 DOCTOR: Cade Wolf Interpretating Date/Time 04/14/2017 14:26:33
[2017-04-14] MEDS ORDERED: ceFAZolin 2 GM PREMIX 50 ML IV SCH (16:00)
[2017-04-14] MEDS: RESP: ALBUTEROL 2.5 MG/IPRATROPIUM 0.5 MG NEB (SCH) NEB (17:46)
[2017-04-14] MEDS: PHENYLEPHRINE INJ 40 MG in DEXTROSE 5% IN WATE 500 ML INJ 496 ML IV SCH ×2 (19:07)
[2017-04-14] MEDS: SODIUM CHLORIDE 0.9% FLUSH 10 ML FLUSH IV FLUSH SCH (20:57)
[2017-04-14] MEDS: AMIODARONE 200 MG TAB PO SCH (20:58)
[2017-04-14] MEDS: ceFAZolin 2 GM PREMIX 50 ML IV SCH (20:59)
[2017-04-14] MEDS: ATORVASTATIN 40 MG TAB PO SCH (20:59)
[2017-04-14] MEDS: CARVEDILOL 3.125 MG TAB PO SCH (20:59)
[2017-04-14] MEDS: DOBUTamine PREMIX DRIP 250 ML IV SCH (21:00)
[2017-04-15] VITALS (12 sets, daily range): BP systolic 91–121; BP diastolic 32–75; PULSE 80–99; RESP 16–20; TEMP 98.7–99.3; O2SAT 94–99
[2017-04-15] MEDS: POTASSIUM CHLOR 20 MEQ PREMIX 100 ML IV PRN ×3 (00:21→10:18)
[2017-04-15] MEDS: PHENYLEPHRINE INJ 40 MG in DEXTROSE 5% IN WATE 500 ML INJ 496 ML IV SCH ×2 (01:59)
[2017-04-15] MEDS: ACETAMINOPHEN 1000 MG/100 ML VIAL IV SCH ×2 (02:00→07:53)
[2017-04-15] MEDS: RESP: ALBUTEROL 2.5 MG/IPRATROPIUM 0.5 MG NEB (SCH) NEB ×4 (03:37→22:37)
[2017-04-15] MEDS: CHLORHEXIDINE GLUCONATE 2 % 1 PACK (2 CLOTHS)(taper/protocol) TOPICAL SCH (04:00)
[2017-04-15] MEDS: ceFAZolin 2 GM PREMIX 50 ML IV SCH ×3 (04:43→20:09)
[2017-04-15 05:22] LABS: HEMATOCRIT 33.8 % (39.0-51.0); MEAN CELL VOLUME 90.3 FL (80.0-100.0); MEAN CORPUSCULAR HEMOGLOBIN 29.9 PG (27.0-34.0); MEAN CORPUSCULAR HGB CONC 33.2 % (32.0-36.0); PLATELET COUNT 350 TH/MM3 (150-450); RED BLOOD COUNT 3.74 MIL/MM3 (4.50-5.90); RED CELL DISTRIBUTION WIDTH 14.9 % (11.6-17.2); REVIEW FLAG FINAL; WHITE BLOOD COUNT 14.8 TH/MM3 (4.0-11.0)
[2017-04-15 05:37] LABS: MAGNESIUM 1.7 MG/DL (1.5-2.5); POTASSIUM 3.8 MEQ/L (3.5-5.1)
[2017-04-15] MEDS: PANTOPRAZOLE SOD 40 MG DELAYED RELEASE TAB PO SCH (06:28)
--- NOTE | 2017-04-15 06:29 | RADRPT ---
EXAM DATE/TIME: 04/15/2017 05:21 [facility] COMPARISON: CHEST SINGLE AP, April 14, 2017, 13:04. INDICATIONS : Post CABG. MEDICAL HISTORY : Cardiovascular disease. SURGICAL HISTORY : CABG. ENCOUNTER: Subsequent ACUITY: 3 days PAIN SCORE: Non-responsive. LOCATION: Bilateral chest FINDINGS: Examination of the chest demonstrates postoperative findings status post median sternotomy. Support l juanita and tubes are in satisfactory position. Endotracheal tube is in place above the geeta. There is no evidence of pneumothorax. Endotracheal tube has been moved. CONCLUSION: 1. Postsurgical changes as above. There is no evidence of pneumothorax. Cade Moreno MD on April 15, 2017 at 6:28 Board Certified Radiologist. This report was verified electronically.
[2017-04-15] MEDS: DOBUTamine PREMIX DRIP 250 ML IV SCH ×2 (07:28→20:10)
[2017-04-15] MEDS: SODIUM CHLORIDE 0.9% FLUSH 10 ML FLUSH IV FLUSH SCH ×2 (08:46→21:00)
[2017-04-15] MEDS: PANTOPRAZOLE SODIUM 40 MG VIAL IV PUSH SCH (09:40)
[2017-04-15] MEDS: ASPIRIN 81 MG CHEW TAB PO SCH (09:40)
[2017-04-15] MEDS: AMIODARONE 200 MG TAB PO SCH ×2 (09:41→20:09)
[2017-04-15] MEDS: CLOPIDOGREL 75 MG TAB PO SCH (09:41)
[2017-04-15] MEDS: CARVEDILOL 3.125 MG TAB PO SCH ×2 (09:41→20:09)
--- NOTE | 2017-04-15 09:41 | HHI.CCPN ---
Subjective Remarks/Hospital Course 86-year-old male arrives by EMS. He's had chest pain intermittently for the past 2 days. Pain became much worse this evening and he called EMS. He's had no shortness of breath. There is no pleuritic chest pain. For the last few months he has been working out at the [employer] gym fairly intensely. Patient has history of hypertension. He has no history of hyperlipidemia or diabetes. He is a history of coronary artery disease. EMS EKG concerning for inferior wall HI. In the ER the patient states his chest pain is 7/10 in severity. STEMI alert activated upon the patient's arrival. The patient emergently went left heart catheterization with PTCA of the right coronary artery and intra-aortic balloon pump placement. Upon evaluation the patient was noted to have left main 85% occlusion, proximal LAD 70% occlusion, mid LAD 80% occlusion, with RCA 100% excluded status post PCI 90% occlusion. During the procedure the patient had V. fib arrest 2, defibrillations with resolution. Subjective: 04/14: No acute events overnight. Patient did have a period of confusion of note this patient has been awake for approximately 24 hours,hospital initial signs of delirium. The patient remains hemodynamically stable IABP 1:1, labs within normal limits in preparation for CABG this a.m.. 04/15: The patient is status post off-pump three-vessel CABG. The patient remains on dobutamine and Artur-Synephrine, currently being weaned, and IABP 1:1. Was extubated last evening, pulmonary toileting and implemented this a.m. the patient describes minimal VAS scale 3/10 pain. The patient was noted to have several periods of confusion throughout the night, of note the patient has had insomnia since admission and normally takes melatonin at night, which has been reinstituted. The patient's diet has been advanced a heart healthy and a bowel regimen has been instituted. Objective Vital Signs Date Time Temp Pulse Resp B/P Pulse Ox O2 Delivery O2 Flow Rate FiO2 04/15/17 09:00 04/15/17 08:00 99.3 85 18 97 04/15/17 07:00 Nasal Cannula 3.00 04/14/17 17:15 45 Intake and Output 04/14/17 04/14/17 04/15/17 08:00 16:00 00:00 Intake Total 962 ml 2125 ml Output Total 285 ml 800 ml Balance 677 ml 1325 ml Result Diagram: 04/15/17 0445 04/15/17 0445 Other Results Microbiology Date/Time Procedure Status Source Growth 04/13/17 05:50 Urine Culture - Final Complete Urine Catheterized Urine NO GROWTH IN 48 HOURS. Imaging Last Impressions Chest X-Ray 04/13/17 0332 Signed Impressions: Service Date/Time: April 03:29 - CONCLUSION: Streaky opacities present at the lung bases most characteristic of scarring and/or atelectasis. Dallin Landry MD Objective Remarks Infusions: Dobutamine 4 mcgs Artur-Synephrine 50 mcgs GENERAL: Alert oriented, elderly gentleman in no acute distress, denies pain, oriented SKIN: Warm and dry. Midline thoracic dressing C/D/I. Maxim wrap intact left lower extremity HEAD: Atraumatic. Normocephalic. EYES: Pupils equal and round. No scleral icterus. No injection or drainage. ENT: No nasal bleeding or discharge. Mucous membranes pink and moist. NECK: Trachea midline. No JVD. CARDIOVASCULAR: Normal rate, regular rhythm. RESPIRATORY: No accessory muscle use. Clear to auscultation. Breath sounds equal bilaterally. No stridor, nasal cannula at 3 L/m GASTROINTESTINAL: Abdomen soft, non-tender, nondistended. No guarding. MUSCULOSKELETAL: Extremities without clubbing, cyanosis, or edema. No obvious deformities. Right femoral dressing patent(IABP) without erythema or drainage NEUROLOGICAL: Awake and alert. RASS 0. No gross focal/sensory deficits. Follows commands in all 4 extremities. Intermittent appears of confusion during the night Urinary Catheter: Yes Dougherty insert reason: Measure Accurate Output Date of Insertion: Apr 13, 2017 Vascular Central Line Catheter: Yes Date of Insertion: Apr 13, 2017 Side: Right Location: Femoral Reason for Continuation Right femoral -IABP, double lumen RIJ/ cordis -vasoactive medications A/P Assessment and Plan Assessment STEMI Angina S/P left heart catheterization, PTCA RCA and placement of intra-aortic balloon pump CKD Stage 3 HTN S/P off-pump 3 vessel CABG POD #1 MAST-> LAD Reverse SVG-> Posterior lateral RCA Reverse SVG-> OM1 (Circ) ICU Delirium Electrolyte imbalance-hypomagnesemia, hypokalemia Plan Plan by systems: Neurologic: -Morphine 1 mg every 2 hours when necessary for pain greater than 7/10 -Maintain Sleep hygiene- prevent ICU delirium-maintain stimulation during the day, maintain sleep-wake cycle - Begin Melatonin 5 mg daily at bedtime PRN ( patient takes regularly at home) Respiratory: -Bronchodilators every 4 hours when necessary for wheezing -Maintain O2 sat greater than 92%, currently O2 at 3 L/m -Pulmonary toileting, begin incentive spirometry -S/P extubation 04/14- patient is a noted to be a difficult intubation with 4 attempts by anesthesiologist in OR Cardiovascular: -IABP 1:1- Planned discussion with Dr. Hanna regarding plan for removal/ discontinuation -Follow-up CTS recommendations- Dr. Adorno - 04/14 ECHO report- EF 25%, severe LV dysfunction -04/13 S/P left heart catheter( Dr. Hanna)-70% proximal LAD, 80% mid LAD, 95% proximal left circumflex, status post PTCA RCA from 100%-> 90% -Continue to wean Artur-Synephrine, Dobutamine - Renal: -Patient previously on hydrochlorothiazide, his CKD stage III-currently on hold (hypotension), urine output marginal continue to monitor -Maintain Dougherty catheter -- Strict I/Os FEN/GI: -04/15 Heart healthy diet initiated -Bowel regimen -Electrolyte replacement per ICU protocol -Protonix GI prophylaxis -Zofran for nausea - Lipid panel, Hemoglobin A1c- WNL Heme/ID: -Monitor CBC, hemoglobin 11 -No indications for cultures at this time - PT/ INR- WNL Endocrine: Glucose monitoring per ICU protocol -Hgb A1C 5.3 -- SSI Prophylaxis: GI Prophylaxis Protonix DVT Prophylaxis -- SCDs MSK: -Bilateral DP pulses biphasic doppler signals, brisk capillary refill -Peripheral edema1+ B/L LE Lines: Right groin femoral IABP, PIV's x 2 Dispo: This patient remains critically ill with one or more organ systems which are or may become a threat to life. I have spent in excess of 30 minutes discontinuously in the care and management of this patient. This time is exclusive of procedures, and includes, but is not limited to, evaluation of the patient, review of the medical record, discussions with family, consultants, nursing staff, or respiratory therapy, and documentation in the medical record. Physician Polina Linares MD Apr 15, 2017 09:41
[2017-04-15] MEDS ORDERED: BISACODYL 10 MG SUPP RECTAL PRN (10:00)
[2017-04-15] MEDS ORDERED: MAGNESIUM HYDROXIDE SUSP 30 ML CUP PO PRN (10:00)
[2017-04-15] MEDS ORDERED: SENNOSIDES 8.6 MG TAB PO PRN (10:00)
[2017-04-15] MEDS ORDERED: LACTULOSE SYRUP 20 GM/30 ML CUP PO PRN (10:00)
--- NOTE | 2017-04-15 10:22 | PD.CAR.PN ---
CVT Progress Note Subjective/Hospital Course: 86 yo admitted with STEMI. Underwent emergent angioplasty without stenting and IABP placement. 04/14 SURGICAL PROCEDURE 1. Urgent Off-pump Coronary Artery Bypass Grafting x 3 with Left Internal Mammary Artery (MAST) to Left Anterior Descending (LAD), reverse saphenous vein graft to the Posterolateral branch of the Right Coronary Artery (RPLB), sequential reverse saphenous vein graft to the Obtuse Marginal 1 branche of the Circumflex artery 2. Left Leg Endoscopic Vein [place] 3. Intraoperative Vein Mapping. 04/15 Doing well Wean IABP and possibly D/C this am Wean Artur and Dobutamine after IABP removed Incentive spirometry Maintain CT Will need repeat ECHO to evaluate EF prior to D/C. Severe LV dysfunction by intraoperative RONDA (EF 25%) Objective: Vital Signs Date Time Temp Pulse Resp B/P Pulse Ox O2 Delivery O2 Flow Rate FiO2 04/15/17 10:16 99 Nasal Cannula 3.00 04/15/17 10:00 04/15/17 09:00 04/15/17 08:00 99.3 85 18 97/65 97 04/15/17 08:00 04/15/17 07:00 85 04/15/17 07:00 78/49 04/15/17 07:00 97 Nasal Cannula 3.00 04/15/17 06:00 04/15/17 05:00 04/15/17 04:00 97 Nasal Cannula 3.00 04/15/17 04:00 96 04/15/17 04:00 98.8 96 20 115/75 97 04/15/17 04:00 83/48 04/15/17 03:00 04/15/17 02:00 04/15/17 01:00 04/15/17 00:00 64/35 04/15/17 00:00 97 Nasal Cannula 3.00 04/15/17 00:00 99.0 82 18 93/64 97 04/15/17 00:00 80 04/14/17 23:00 04/14/17 22:00 04/14/17 21:16 98 Nasal Cannula 3.00 04/14/17 21:00 04/14/17 20:00 99.2 75 18 98/57 99 04/14/17 20:00 72/48 04/14/17 20:00 99 Nasal Cannula 3.00 04/14/17 20:00 74 04/14/17 18:00 100 Nasal Cannula 3.00 04/14/17 18:00 68/37 04/14/17 17:40 97 Nasal Cannula 3.00 04/14/17 17:15 97 Simple Mask 10.00 04/14/17 17:15 97 Mask 10 04/14/17 17:15 45 04/14/17 17:00 100 Simple Mask 6.00 04/14/17 17:00 73/43 04/14/17 16:10 100 45 04/14/17 16:00 45 04/14/17 16:00 98.7 69 18 118/60 100 91/49 04/14/17 16:00 91/49 04/14/17 16:00 100 Mechanical Ventilator 45 04/14/17 15:00 56/39 04/14/17 15:00 50 04/14/17 15:00 60 04/14/17 14:44 15 04/14/17 14:00 68/37 04/14/17 14:00 50 04/14/17 14:00 100 50 04/14/17 13:00 68/42 04/14/17 12:45 100 Mechanical Ventilator 60 04/14/17 12:45 98.9 58 15 94/56 100 59/44 04/14/17 12:45 59/44 04/14/17 12:45 100 60 04/14/17 12:45 60 Labs: Laboratory Tests Test 04/15/17 04:45 White Blood Count 14.8 TH/MM3 (4.0-11.0) Red Blood Count 3.74 MIL/MM3 (4.50-5.90) Hemoglobin 11.2 GM/DL (13.0-17.0) Hematocrit 33.8 % (39.0-51.0) Mean Corpuscular Volume 90.3 FL (80.0-100.0) Mean Corpuscular Hemoglobin 29.9 PG (27.0-34.0) Mean Corpuscular Hemoglobin 33.2 % Concent (32.0-36.0) Red Cell Distribution Width 14.9 % (11.6-17.2) Platelet Count 350 TH/MM3 (150-450) Mean Platelet Volume 9.9 FL (7.0-11.0) Sodium Level 140 MEQ/L (136-145) Potassium Level 3.8 MEQ/L (3.5-5.1) Chloride Level 106 MEQ/L (98-107) Carbon Dioxide Level 22.0 MEQ/L (21.0-32.0) Anion Gap 12 MEQ/L (5-15) Blood Urea Nitrogen 15 MG/DL (7-18) Creatinine 1.19 MG/DL (0.60-1.30) Estimat Glomerular Filtration 58 ML/MIN (>89) Rate Random Glucose 153 MG/DL (74-106) Calcium Level 8.3 MG/DL (8.5-10.1) Magnesium Level 1.7 MG/DL (1.5-2.5) Result Diagram: 04/15/1744404/15/17444 (1) STEMI (ST elevation myocardial infarction) Plan: Stable s/p PTCA of occluded proximal RCA to re-establish flow and s/p placement IABP. LAD, left circumflex, and probably left main also with severe disease. Echo pending to assess LV function. Groin stable. No further angina. BP better. REC await cardiothoracic surgery consult, await echo as BP better, will try to start low dose beta daniella continue heparin drip, aspirin (2) Hypertension Plan: Transiently hypotensive after cath, now normotensive. Continue to monitor. (3) Hyperlipidemia Plan: Awaiting lipid profile. Continue statin. (4) S/P CABG x 3 (5) Severe left ventricular systolic dysfunction Problem Qualifiers (1) STEMI (ST elevation myocardial infarction): Qualified Code: I21.19 - ST elevation myocardial infarction (STEMI) involving other coronary artery of inferior wall (2) Hypertension: Qualified Code: I10 - Essential hypertension (3) Hyperlipidemia: Qualified Code: E78.5 - Hyperlipidemia, unspecified hyperlipidemia type Avis Adorno MD Apr 15, 2017 10:22
--- NOTE | 2017-04-15 13:44 | EKG ---
Date Performed: 04/15/2017 Time Performed: 04:04:20 PTAGE: 86 years EKG: Probable accelerated junctional rhythm Inferior infarct - age undetermined Lateral ST-T zeeshan nges may be due to myocardial ischemia Abnormal ECG PREVIOUS TRACING : 04/13/2017 12.11 Since previous tracing, no significant change noted DOCTOR: Travis Ruiz Interpretating Date/Time 04/15/2017 13:42:14
[2017-04-15] MEDS ORDERED: PLEASE DISCONTINUE PREVIOUS SUPPLEMENTAL SCALE INSULIN ORDERS ONE (15:00)
[2017-04-15] MEDS ORDERED: DEXTROSE 50% IN WATER 50 ML VIAL(D50) IV PUSH PRN (15:00)
[2017-04-15] MEDS ORDERED: GLUCAGON 1 MG/ML VIAL OTHER PRN (15:00)
[2017-04-15] MEDS: LOW DOSE INSULIN NOVOLOG SUPPLEMENTAL SCALE SQ SCH ×2 (16:00→21:00)
[2017-04-15] MEDS: ATORVASTATIN 40 MG TAB PO SCH (20:09)
[2017-04-15] MEDS: DOCUSATE SODIUM 50 MG/SENNA 8.6 MG TAB PO SCH (20:09)
[2017-04-15] MEDS ORDERED: MELATONIN 5 MG TAB PO PRN (21:00)
[2017-04-16] VITALS (14 sets, daily range): BP systolic 105–123; BP diastolic 67–72; PULSE 73–100; RESP 12–18; TEMP 98.5–99.1; O2SAT 95–100
[2017-04-16] MEDS: CHLORHEXIDINE GLUCONATE 2 % 1 PACK (2 CLOTHS)(taper/protocol) TOPICAL SCH (04:00)
[2017-04-16] MEDS: RESP: ALBUTEROL 2.5 MG/IPRATROPIUM 0.5 MG NEB (SCH) NEB ×5 (04:45→21:51)
[2017-04-16 05:09] LABS: HEMATOCRIT 29.5 % (39.0-51.0); MEAN CELL VOLUME 89.3 FL (80.0-100.0); MEAN CORPUSCULAR HEMOGLOBIN 30.1 PG (27.0-34.0); MEAN CORPUSCULAR HGB CONC 33.7 % (32.0-36.0); PLATELET COUNT 361 TH/MM3 (150-450); RED BLOOD COUNT 3.31 MIL/MM3 (4.50-5.90); RED CELL DISTRIBUTION WIDTH 15.1 % (11.6-17.2); REVIEW FLAG FINAL; WHITE BLOOD COUNT 14.8 TH/MM3 (4.0-11.0)
[2017-04-16] MEDS: ceFAZolin 2 GM PREMIX 50 ML IV SCH (05:17)
[2017-04-16] MEDS: PANTOPRAZOLE SOD 40 MG DELAYED RELEASE TAB PO SCH (05:17)
[2017-04-16 05:49] LABS: BICARBONATE 27.5 MEQ/L (21.0-32.0); MAGNESIUM 1.8 MG/DL (1.5-2.5); POTASSIUM 3.9 MEQ/L (3.5-5.1)
[2017-04-16] MEDS: POTASSIUM CHLOR 20 MEQ PREMIX 100 ML IV PRN (06:22)
[2017-04-16] MEDS: LOW DOSE INSULIN NOVOLOG SUPPLEMENTAL SCALE SQ SCH ×4 (06:31→20:48)
[2017-04-16] MEDS ORDERED: SODIUM PHOSPHATE INJ 30 MMOL in SODIUM CHLOR 0.9% 250 ML INJ 250 ML IV ONE (07:00)
--- NOTE | 2017-04-16 08:34 | PD.CAR.PN ---
CVT Progress Note Subjective/Hospital Course: 86 yo admitted with STEMI. Underwent emergent angioplasty without stenting and IABP placement. 04/14 SURGICAL PROCEDURE 1. Urgent Off-pump Coronary Artery Bypass Grafting x 3 with Left Internal Mammary Artery (MAST) to Left Anterior Descending (LAD), reverse saphenous vein graft to the Posterolateral branch of the Right Coronary Artery (RPLB), sequential reverse saphenous vein graft to the Obtuse Marginal 1 branche of the Circumflex artery 2. Left Leg Endoscopic Vein [place] 3. Intraoperative Vein Mapping. 04/15 Doing well Wean IABP and possibly D/C this am Wean Artur and Dobutamine after IABP removed Incentive spirometry Maintain CT Will need repeat ECHO to evaluate EF prior to D/C. Severe LV dysfunction by intraoperative RONDA (EF 25%) 04/16 Doing well Off of all drips Beta daniella and gentle diuresis Transfer telemetry Maintain CT Objective: Vital Signs Date Time Temp Pulse Resp B/P Pulse Ox O2 Delivery O2 Flow Rate FiO2 04/16/17 07:00 98.9 80 18 110/67 98 04/16/17 07:00 98 Nasal Cannula 4.00 04/16/17 07:00 85 04/16/17 04:00 95 Nasal Cannula 4.00 04/16/17 03:00 91 04/16/17 03:00 99.1 89 12 109/71 97 04/16/17 03:00 94 Nasal Cannula 3.00 04/15/17 23:00 91 04/15/17 23:00 99 Nasal Cannula 3.00 04/15/17 23:00 98.9 90 16 108/68 99 Arterial Line 04/15/17 22:37 94 Nasal Cannula 3.00 04/15/17 19:00 99.0 97 18 108/66 96 Arterial Line 04/15/17 19:00 98 Nasal Cannula 3.00 04/15/17 19:00 99 04/15/17 16:00 98.7 95 20 111/32 98 121/63 04/15/17 15:00 97 04/15/17 15:00 98 Nasal Cannula 3.00 04/15/17 12:00 99.1 97 20 91/44 98 100/62 04/15/17 11:00 98 Nasal Cannula 3.00 04/15/17 11:00 95 04/15/17 10:16 99 Nasal Cannula 3.00 04/15/17 10:00 04/15/17 09:00 Labs: Laboratory Tests Test 04/16/17 04:50 White Blood Count 14.8 TH/MM3 (4.0-11.0) Red Blood Count 3.31 MIL/MM3 (4.50-5.90) Hemoglobin 9.9 GM/DL (13.0-17.0) Hematocrit 29.5 % (39.0-51.0) Mean Corpuscular Volume 89.3 FL (80.0-100.0) Mean Corpuscular Hemoglobin 30.1 PG (27.0-34.0) Mean Corpuscular Hemoglobin 33.7 % Concent (32.0-36.0) Red Cell Distribution Width 15.1 % (11.6-17.2) Platelet Count 361 TH/MM3 (150-450) Mean Platelet Volume 9.6 FL (7.0-11.0) Sodium Level 138 MEQ/L (136-145) Potassium Level 3.9 MEQ/L (3.5-5.1) Chloride Level 105 MEQ/L (98-107) Carbon Dioxide Level 27.5 MEQ/L (21.0-32.0) Anion Gap 6 MEQ/L (5-15) Blood Urea Nitrogen 17 MG/DL (7-18) Creatinine 1.06 MG/DL (0.60-1.30) Estimat Glomerular Filtration 66 ML/MIN (>89) Rate Random Glucose 135 MG/DL (74-106) Calcium Level 8.6 MG/DL (8.5-10.1) Phosphorus Level 1.1 MG/DL (2.5-4.9) Magnesium Level 1.8 MG/DL (1.5-2.5) Result Diagram: 04/16/17 0450 04/16/17 0450 (1) STEMI (ST elevation myocardial infarction) Plan: Stable s/p PTCA of occluded proximal RCA to re-establish flow and s/p placement IABP. LAD, left circumflex, and probably left main also with severe disease. Echo pending to assess LV function. Groin stable. No further angina. BP better. REC await cardiothoracic surgery consult, await echo as BP better, will try to start low dose beta daniella continue heparin drip, aspirin (2) Hypertension Plan: Transiently hypotensive after cath, now normotensive. Continue to monitor. (3) Hyperlipidemia Plan: Awaiting lipid profile. Continue statin. (4) S/P CABG x 3 (5) Severe left ventricular systolic dysfunction Problem Qualifiers (1) STEMI (ST elevation myocardial infarction): Qualified Code: I21.19 - ST elevation myocardial infarction (STEMI) involving other coronary artery of inferior wall (2) Hypertension: Qualified Code: I10 - Essential hypertension (3) Hyperlipidemia: Qualified Code: E78.5 - Hyperlipidemia, unspecified hyperlipidemia type Avis Adorno MD Apr 16, 2017 08:34
[2017-04-16] MEDS: CLOPIDOGREL 75 MG TAB PO SCH (08:40)
[2017-04-16] MEDS: PANTOPRAZOLE SODIUM 40 MG VIAL IV PUSH SCH (08:40)
[2017-04-16] MEDS: ASPIRIN 81 MG CHEW TAB PO SCH (08:41)
[2017-04-16] MEDS: SODIUM CHLORIDE 0.9% FLUSH 10 ML FLUSH IV FLUSH SCH ×2 (08:41→20:40)
[2017-04-16] MEDS: CARVEDILOL 3.125 MG TAB PO SCH ×2 (08:41→20:40)
[2017-04-16] MEDS: AMIODARONE 200 MG TAB PO SCH ×2 (08:41→20:40)
[2017-04-16] MEDS: DOCUSATE SODIUM 50 MG/SENNA 8.6 MG TAB PO SCH ×2 (08:41→20:40)
[2017-04-16] MEDS: MULTIVITAMINS/MINERALS THERAPEUTIC TAB PO SCH (08:59)
[2017-04-16] MEDS ORDERED: SOD PHOSPHATE/SOD BIPHOSPHATE (ADULT) ENEMA 133ML RECTAL PRN (09:00)
[2017-04-16] MEDS ORDERED: FUROSEMIDE 20 MG/2 ML VIAL IV PUSH ONE (09:00)
--- NOTE | 2017-04-16 11:00 | HHI.CCPN ---
Subjective Remarks/Hospital Course 86-year-old male arrives by EMS. He's had chest pain intermittently for the past 2 days. Pain became much worse this evening and he called EMS. He's had no shortness of breath. There is no pleuritic chest pain. For the last few months he has been working out at the [employer] fairly intensely. Patient has history of hypertension. He has no history of hyperlipidemia or diabetes. He is a history of coronary artery disease. EMS EKG concerning for inferior wall CA. In the ER the patient states his chest pain is 7/10 in severity. STEMI alert activated upon the patient's arrival. The patient emergently went left heart catheterization with PTCA of the right coronary artery and intra-aortic balloon pump placement. Upon evaluation the patient was noted to have left main 85% occlusion, proximal LAD 70% occlusion, mid LAD 80% occlusion, with RCA 100% excluded status post PCI 90% occlusion. During the procedure the patient had V. fib arrest 2, defibrillations with resolution. Subjective: 04/14: No acute events overnight. Patient did have a period of confusion of note this patient has been awake for approximately 24 hours,hospital initial signs of delirium. The patient remains hemodynamically stable IABP 1:1, labs within normal limits in preparation for CABG this a.m.. 04/15: The patient is status post off-pump three-vessel CABG. The patient remains on dobutamine and Artur-Synephrine, currently being weaned, and IABP 1:1. Was extubated last evening, pulmonary toileting and implemented this a.m. the patient describes minimal VAS scale 3/10 pain. The patient was noted to have several periods of confusion throughout the night, of note the patient has had insomnia since admission and normally takes melatonin at night, which has been reinstituted. The patient's diet has been advanced a heart healthy and a bowel regimen has been instituted. 04/16: No acute issues overnight. Intra-aortic balloon pump was discontinued yesterday afternoon. The patient was weaned off dobutamine since 1 AM .The patient sat up in a recliner chair for greater than 8 hours, complaining of difficulty sleeping, melatonin increase atenolol milligrams daily at bedtime when necessary for insomnia. Patient tolerating diet. Objective Vital Signs Date Time Temp Pulse Resp B/P Pulse Ox O2 Delivery O2 Flow Rate FiO2 04/16/17 10:05 95 Nasal Cannula 3.00 04/16/17 07:00 98.9 80 18 110/67 04/14/17 17:15 45 Intake and Output 04/15/17 04/15/17 04/16/17 08:00 16:00 00:00 Intake Total 2339 ml 1938 ml Output Total 560 ml 660 ml Balance 1779 ml 1278 ml Result Diagram: 04/16/17 0450 04/16/17 0450 Imaging Last Impressions Chest X-Ray 04/13/17 0332 Signed Impressions: Service Date/Time: April 03:29 - CONCLUSION: Streaky opacities present at the lung bases most characteristic of scarring and/or atelectasis. Dallin Landry MD Objective Remarks GENERAL: Alert oriented, elderly gentleman in no acute distress, denies pain, oriented SKIN: Warm and dry. Midline thoracic dressing C/D/I. Maxim wrap intact left lower extremity HEAD: Atraumatic. Normocephalic. EYES: Pupils equal and round. No scleral icterus. No injection or drainage. ENT: No nasal bleeding or discharge. Mucous membranes pink and moist. NECK: Trachea midline. No JVD. CARDIOVASCULAR: Normal rate, regular rhythm. RESPIRATORY: No accessory muscle use. Clear to auscultation. Breath sounds equal bilaterally. No stridor, nasal cannula at 3 L/m GASTROINTESTINAL: Abdomen soft, non-tender, nondistended. No guarding. MUSCULOSKELETAL: Extremities without clubbing, cyanosis, or edema. No obvious deformities. NEUROLOGICAL: Awake and alert. RASS 0. No gross focal/sensory deficits. Follows commands in all 4 extremities. Date of Insertion: Apr 13, 2017 Date of Removal: Apr 15, 2017 Date of Insertion: Apr 13, 2017 Date of Removal: Apr 15, 2017 Side: Right Location: Femoral A/P Assessment and Plan Assessment STEMI Angina S/P left heart catheterization, PTCA RCA and placement of intra-aortic balloon pump CKD Stage 3 HTN S/P off-pump 3 vessel CABG POD #1 MAST-> LAD Reverse SVG-> Posterior lateral RCA Reverse SVG-> OM1 (Circ) ICU Delirium Electrolyte imbalance-hypomagnesemia, hypokalemia-resolved Hypophosphatemia Plan Plan by systems: Neurologic: -Morphine 1 mg every 2 hours when necessary for pain greater than 7/10 -Maintain Sleep hygiene- prevent ICU delirium-maintain stimulation during the day, maintain sleep-wake cycle - Increase Melatonin 10 mg daily at bedtime PRN ( patient takes regularly at home) Respiratory: -Bronchodilators every 4 hours when necessary for wheezing -Maintain O2 sat greater than 92%, currently O2 at 3 L/m -Pulmonary toileting, begin incentive spirometry -S/P extubation 04/14- patient is a noted to be a difficult intubation with 4 attempts by anesthesiologist in OR Cardiovascular: -IABP 1:1- Planned discussion with Dr. Hanna regarding plan for removal/ discontinuation -Follow-up CTS recommendations- Dr. Adorno - 04/14 ECHO report- EF 25%, severe LV dysfunction -04/13 S/P left heart catheter( Dr. Hanna)-70% proximal LAD, 80% mid LAD, 95% proximal left circumflex, status post PTCA RCA from 100%-> 90% -Discontinued Artur-Synephrine 04/15, Dobutamine 04/16 - Renal: -Patient previously on hydrochlorothiazide, his CKD stage III-currently on hold (hypotension), urine output marginal continue to monitor -Maintain Dougherty catheter -- Strict I/Os FEN/GI: -04/15 Heart healthy diet -Bowel regimen -Electrolyte replacement per ICU protocol -Protonix GI prophylaxis -Zofran for nausea - Lipid panel, Hemoglobin A1c- WNL Heme/ID: -Monitor CBC -No indications for cultures at this time - PT/ INR- WNL Endocrine: Glucose monitoring per ICU protocol -Hgb A1C 5.3 -- SSI Prophylaxis: GI Prophylaxis Protonix DVT Prophylaxis -- SCDs MSK: -Bilateral DP pulses biphasic doppler signals -Peripheral edema 1+ B/L LE Lines: Right groin femoral IABP, PIV's x 2 Dispo: Level 3 Discussed with POURER METAL at bedside. Thank you for the pertussis the patient in the care of this patient. Critical care medicine will sign off. Physician Polina Linares MD Apr 16, 2017 11:00
[2017-04-16] MEDS: DOBUTamine PREMIX DRIP 250 ML IV SCH (18:36)
[2017-04-16] MEDS: MELATONIN 5 MG TAB PO PRN (20:40)
[2017-04-16] MEDS: ATORVASTATIN 40 MG TAB PO SCH (20:40)
[2017-04-17] VITALS (30 sets, daily range): BP systolic 102–122; BP diastolic 59–74; PULSE 68–96; RESP 12–20; TEMP 98.4–99.3; O2SAT 91–99
[2017-04-17] MEDS: CHLORHEXIDINE GLUCONATE 2 % 1 PACK (2 CLOTHS)(taper/protocol) TOPICAL SCH (04:00)
[2017-04-17] MEDS: PANTOPRAZOLE SOD 40 MG DELAYED RELEASE TAB PO SCH ×2 (05:48→09:50)
[2017-04-17] MEDS: LOW DOSE INSULIN NOVOLOG SUPPLEMENTAL SCALE SQ SCH ×4 (07:00→21:00)
[2017-04-17] MEDS: RESP: ALBUTEROL 2.5 MG/IPRATROPIUM 0.5 MG NEB (SCH) NEB ×3 (08:25→20:56)
[2017-04-17] MEDS: PANTOPRAZOLE SODIUM 40 MG VIAL IV PUSH SCH (09:00)
[2017-04-17] MEDS ORDERED: PILL SPLITTER OTHER PRN (09:00)
[2017-04-17] MEDS ORDERED: LISINOPRIL 5 MG TAB PO SCH (09:00)
[2017-04-17] MEDS: SODIUM CHLORIDE 0.9% FLUSH 10 ML FLUSH IV FLUSH SCH ×2 (09:51→21:04)
[2017-04-17] MEDS: FUROSEMIDE 40 MG TAB PO SCH ×2 (09:51→18:27)
[2017-04-17] MEDS: CARVEDILOL 3.125 MG TAB PO SCH ×2 (09:51→21:03)
[2017-04-17] MEDS: CLOPIDOGREL 75 MG TAB PO SCH (09:51)
[2017-04-17] MEDS: AMIODARONE 200 MG TAB PO SCH ×2 (09:52→21:03)
[2017-04-17] MEDS: DOCUSATE SODIUM 50 MG/SENNA 8.6 MG TAB PO SCH ×2 (09:52→21:03)
[2017-04-17] MEDS: POTASSIUM CHLORIDE 20 MEQ CONTROLLED RELEASE TAB PO SCH ×2 (09:52→21:03)
[2017-04-17] MEDS: ASPIRIN 81 MG CHEW TAB PO SCH (09:52)
[2017-04-17] MEDS: MULTIVITAMINS/MINERALS THERAPEUTIC TAB PO SCH (09:53)
--- NOTE | 2017-04-17 10:23 | RSPPFT ---
DATE OF PROCEDURE: 04/13/17 COMMENTS: Spirometry with FVC of 2.8, FEV1 of 1.8, FEV1/FVC ratio at 65%. IMPRESSION: 1. Moderately severe airways obstruction. 2. Post-bronchodilator study was not done.
[2017-04-17] MEDS ORDERED: BISACODYL 10 MG SUPP RECTAL ONE (11:30)
[2017-04-17] MEDS ORDERED: WALKER WHEELS/F1 MIS (11:30)
--- NOTE | 2017-04-17 11:44 | PD.CAR.PN ---
CVT Progress Note Subjective/Hospital Course: 86 yo admitted with STEMI. Underwent emergent angioplasty without stenting and IABP placement. 04/14 SURGICAL PROCEDURE 1. Urgent Off-pump Coronary Artery Bypass Grafting x 3 with Left Internal Mammary Artery (MAST) to Left Anterior Descending (LAD), reverse saphenous vein graft to the Posterolateral branch of the Right Coronary Artery (RPLB), sequential reverse saphenous vein graft to the Obtuse Marginal 1 branche of the Circumflex artery 2. Left Leg Endoscopic Vein [place] 3. Intraoperative Vein Mapping. 04/15 Doing well Wean IABP and possibly D/C this am Wean Artur and Dobutamine after IABP removed Incentive spirometry Maintain CT Will need repeat ECHO to evaluate EF prior to D/C. Severe LV dysfunction by intraoperative RONDA (EF 25%) 04/16 Doing well Off of all drips Beta daniella and gentle diuresis Transfer telemetry Maintain CT 04/17 doing well , on room air still + balance continue diuresis OOB ambulate, spoke with daughter, pt will be going home with family at dc chest tube dc without difficulty Objective: Vital Signs Date Time Temp Pulse Resp B/P Pulse Ox O2 Delivery O2 Flow Rate FiO2 04/17/17 08:25 91 04/17/17 07:15 98.6 74 12 122/74 99 04/17/17 07:15 99 04/17/17 07:00 68 04/17/17 06:30 73 04/17/17 05:07 73 04/17/17 04:02 98.9 75 105/74 96 04/17/17 04:00 72 04/17/17 03:29 Nasal Cannula 3.00 45 04/17/17 03:00 74 04/17/17 02:00 90 04/17/17 01:00 74 04/17/17 00:40 Nasal Cannula 3.00 45 04/17/17 00:40 98.4 75 102/62 96 04/17/17 00:00 74 04/16/17 23:00 73 04/16/17 22:00 82 04/16/17 21:52 99 Nasal Cannula 3.00 04/16/17 21:00 74 04/16/17 20:00 74 04/16/17 20:00 Nasal Cannula 3.00 04/16/17 20:00 98.5 78 123/72 100 04/16/17 19:00 94 04/16/17 17:45 100 04/16/17 15:06 82 04/16/17 15:05 98.9 83 18 107/67 98 04/16/17 15:00 98 Nasal Cannula 3.00 Result Diagram: 04/16/1744904/16/17449 Telemetry: NSR (1) STEMI (ST elevation myocardial infarction) Plan: /p PTCA of occluded proximal RCA to re-establish flow and s/p placement IABP. ) removed ) LAD, left circumflex, and probably left main also with severe disease. (2) Hypertension Plan: stable (3) Hyperlipidemia Plan: . Continue statin. (4) S/P CABG x 3 Plan: ASA, statin , BB diuresis OOB ambulate chest tube removed without difficulty pulm toileting (5) Severe left ventricular systolic dysfunction Plan: repeat echo pending low dose perla started Problem Qualifiers (1) STEMI (ST elevation myocardial infarction): Qualified Code: I21.19 - ST elevation myocardial infarction (STEMI) involving other coronary artery of inferior wall (2) Hypertension: Qualified Code: I10 - Essential hypertension (3) Hyperlipidemia: Qualified Code: E78.5 - Hyperlipidemia, unspecified hyperlipidemia type Britany Caldera Apr 17, 2017 11:44
[2017-04-17 11:47] LABS: AUTOMATED NEUTROPHIL # 11.4 TH/MM3 (1.8-7.7); BASOPHIL # 0.1 TH/MM3 (0-0.2); BASOPHIL % 0.5 % (0.0-2.0); EOSINOPHIL # 0.1 TH/MM3 (0-0.4); EOSINOPHIL % 0.7 % (0.0-4.0); HEMATOCRIT 29.4 % (39.0-51.0); HEMO FLAGS DIFF FINAL; LYMPH % 4.9 % (9.0-44.0); LYMPHOCYTE # 0.6 TH/MM3 (1.0-4.8); MEAN CELL VOLUME 89.3 FL (80.0-100.0); MEAN CORPUSCULAR HEMOGLOBIN 29.9 PG (27.0-34.0); MEAN CORPUSCULAR HGB CONC 33.4 % (32.0-36.0); MONO % 5.2 % (0.0-8.0); NEUT % 88.7 % (16.0-70.0); PLATELET COUNT 425 TH/MM3 (150-450); RED CELL DISTRIBUTION WIDTH 14.7 % (11.6-17.2); WHITE BLOOD COUNT 12.9 TH/MM3 (4.0-11.0)
[2017-04-17 12:01] LABS: BICARBONATE 26.5 MEQ/L (21.0-32.0); MAGNESIUM 1.9 MG/DL (1.5-2.5); POTASSIUM 3.3 MEQ/L (3.5-5.1)
--- NOTE | 2017-04-17 12:16 | ECHRPT ---
Indication: assess chf CONCLUSIONS The left ventricular systolic function is moderately reduced with an estimated ejection fraction in the range of 40-45%. Normal left ventricular size. Mild concentric left ventricular hypertrophy. BP: / HR: Rhythm: MEASUREMENTS (Male / Female) Normal Values Technical Quality:Technically difficult study 2D ECHO LV Diastolic Diameter PLAX 4.5 cm 4.2 - 5.9 / 3.9 - 5.3 cm LV Systolic Diameter PLAX 3.8 cm IVS Diastolic Thickness 1.3 cm 0.6 - 1.0 / 0.6 - 0.9 cm LVPW Diastolic Thickness 1.1 cm 0.6 - 1.0 / 0.6 - 0.9 cm LV Relative Wall Thickness 0.5 RV Internal Dim ED PLAX 3.3 cm LV Ejection Fraction MOD 4C 38.6 % LV Ejection Fraction 4C AL 45.2 % FINDINGS LEFT VENTRICLE The left ventricular systolic function is moderately reduced with an estimated ejection fraction in the range of 40-45%. Normal left ventricular size. Mild concentric left ventricular hypertrophy. RIGHT VENTRICLE Normal right ventricular size and systolic function. LEFT ATRIUM The left atrial size is normal. RIGHT ATRIUM The right atrial size is normal. ATRIAL SEPTUM Normal atrial septal thickness without atrial level shunting by limited color doppler interrogation. AORTA The aortic root and proximal ascending aorta are normal in size on limited imaging. MITRAL VALVE Structurally normal mitral valve. No mitral valve stenosis or regurgitation. AORTIC VALVE Trileaflet aortic valve. No aortic valve stenosis or regurgitation. TRICUSPID VALVE Structurally normal tricuspid valve. No tricuspid valve stenosis or regurgitation. PULMONARY VALVE The pulmonary valve is not well visualized. VESSELS The inferior vena cava is normal in size. PERICARDIUM No pericardial effusion. Oracio Flores MD, FACC (Electronically Signed) Final Date:17 April 2017 12:15
[2017-04-17] MEDS: ATORVASTATIN 40 MG TAB PO SCH (21:02)
[2017-04-17] MEDS: MELATONIN 5 MG TAB PO PRN (21:21)
[2017-04-18] VITALS (17 sets, daily range): BP systolic 94–118; BP diastolic 56–76; PULSE 66–101; RESP 12–19; TEMP 97.8–99; O2SAT 94–98
--- NOTE | 2017-04-18 04:55 | RADRPT ---
EXAM DATE/TIME: 04/18/2017 04:16 [facility] COMPARISON: No previous studies available for comparison. INDICATIONS : Post chest tube removal. MEDICAL HISTORY : Cardiovascular disease. SURGICAL HISTORY : CABG. ENCOUNTER: Subsequent ACUITY: 4 - 6 days PAIN SCORE: Non-responsive. LOCATION: Bilateral chest FINDINGS: There is cardiomegaly, dense consolidation in the left lower lobe and a small left effusion. Increasi ng airspace disease in the left mid to lower lung zone. Left-sided chest tube has been removed. I do not see a pneumothorax. There is atelectasis at the right base. CONCLUSION: No obvious pneumothorax status post chest tube removal. Please see above discussion. Bentley Luque MD on April 18, 2017 at 4:54 Board Certified Radiologist. This report was verified electronically.
[2017-04-18] MEDS: LOW DOSE INSULIN NOVOLOG SUPPLEMENTAL SCALE SQ SCH ×2 (06:04→11:00)
[2017-04-18] MEDS: RESP: ALBUTEROL 2.5 MG/IPRATROPIUM 0.5 MG NEB (SCH) NEB (08:23)
[2017-04-18] MEDS ORDERED: POTASSIUM CHLORIDE 20 MEQ CONTROLLED RELEASE TAB PO ONE (09:00)
[2017-04-18] MEDS: SODIUM CHLORIDE 0.9% FLUSH 10 ML FLUSH IV FLUSH SCH (09:25)
[2017-04-18] MEDS: CARVEDILOL 3.125 MG TAB PO SCH (09:25)
[2017-04-18] MEDS: CLOPIDOGREL 75 MG TAB PO SCH (09:25)
[2017-04-18] MEDS: ASPIRIN 81 MG CHEW TAB PO SCH (09:26)
[2017-04-18] MEDS: MULTIVITAMINS/MINERALS THERAPEUTIC TAB PO SCH (09:26)
[2017-04-18] MEDS: DOCUSATE SODIUM 50 MG/SENNA 8.6 MG TAB PO SCH (09:26)
[2017-04-18] MEDS: MAGNESIUM SULFATE 1 GM PREMIX 100 ML IV SCH ×2 (09:27→10:41)
[2017-04-18] MEDS ORDERED: POTASSIUM PHOSPHATE INJ 30 MMOL in SODIUM CHLOR 0.9% 250 ML INJ 250 ML IV ONE (10:00)
[2017-04-18] MEDS ORDERED: ASPI81CH25 PO (10:26)
[2017-04-18] MEDS ORDERED: CARV3.125 PO (10:26)
[2017-04-18] MEDS ORDERED: HYDR-3516 PO (10:26)
[2017-04-18] MEDS ORDERED: ATOR40TA16 PO (10:26)
[2017-04-18] MEDS ORDERED: THERM PO (10:26)
[2017-04-18] MEDS ORDERED: SENN1TAB PO (10:26)
[2017-04-18] MEDS ORDERED: PLAV75TA29 PO (10:26)
--- NOTE | 2017-04-18 10:40 | HHI.DS ---
Discharge Summary Admission Date Apr 13, 2017 at 03:40 Discharge Date: Apr 18, 2017 Admitting Diagnosis . Severe Multi Vessel Coronary Artery Disease. 2. Acute Myocardial Infarction (STEMI) 3. Severe Left Ventricular Dysfunction (EF 25%) 4. IABP Circulatory Support 5. Ventricular Fibrillation 6. Atrial Fibrillation (1) Hyperlipidemia Diagnosis: Principal (2) STEMI (ST elevation myocardial infarction) Diagnosis: Principal (3) Hypertension Diagnosis: Principal (4) Severe left ventricular systolic dysfunction Diagnosis: Secondary (5) S/P CABG x 3 Diagnosis: Secondary Procedures 1. Urgent Off-pump Coronary Artery Bypass Grafting x 3 with Left Internal Mammary Artery (MAST) to Left Anterior Descending (LAD), reverse saphenous vein graft to the Posterolateral branch of the Right Coronary Artery (RPLB), sequential reverse saphenous vein graft to the Obtuse Marginal 1 branche of the Circumflex artery 2. Left Leg Endoscopic Vein [place] 3. Intraoperative Vein Mapping. 04/14/17 Brief History 86-year-old male arrives by EMS. He's had chest pain intermittently for the past 2 days. Pain became much worse this evening and he called EMS. He's had no shortness of breath. There is no pleuritic chest pain. For the last few months he has been working out at the [employer] fairly intensely. Patient has history of hypertension. He has no history of hyperlipidemia or diabetes. He is a history of coronary artery disease. EMS EKG concerning for inferior wall WI. In the ER the patient states his chest pain is 7/10 in severity. STEMI alert activated upon the patient's arrival. The patient emergently went left heart catheterization with PTCA of the right coronary artery and intra-aortic balloon pump placement. Upon evaluation the patient was noted to have left main 85% occlusion, proximal LAD 70% occlusion, mid LAD 80% occlusion, with RCA 100% excluded status post PCI 90% occlusion. During the procedure the patient had V. fib arrest 2, defibrillations with resolution. CBC/BMP: 04/17/17 1030 04/17/17 1030 Significant Findings Laboratory Tests Test 04/16/17 04/17/17 04:50 10:30 White Blood Count 14.8 TH/MM3 12.9 TH/MM3 (4.0-11.0) (4.0-11.0) Red Blood Count 3.31 MIL/MM3 3.30 MIL/MM3 (4.50-5.90) (4.50-5.90) Hemoglobin 9.9 GM/DL 9.8 GM/DL (13.0-17.0) (13.0-17.0) Hematocrit 29.5 % 29.4 % (39.0-51.0) (39.0-51.0) Estimat Glomerular Filtration 66 ML/MIN (>89) 63 ML/MIN (>89) Rate Random Glucose 135 MG/DL 120 MG/DL (74-106) (74-106) Phosphorus Level 1.1 MG/DL 1.3 MG/DL (2.5-4.9) (2.5-4.9) Neutrophils (%) (Auto) 88.7 % (16.0-70.0) Lymphocytes (%) (Auto) 4.9 % (9.0-44.0) Neutrophils # (Auto) 11.4 TH/MM3 (1.8-7.7) Lymphocytes # (Auto) 0.6 TH/MM3 (1.0-4.8) Potassium Level 3.3 MEQ/L (3.5-5.1) Blood Urea Nitrogen 19 MG/DL (7-18) Imaging Last Impressions Chest X-Ray 04/18/17 0600 Signed Impressions: Service Date/Time: Tuesday, April 18, 2017 04:16 - CONCLUSION: No obvious pneumothorax status post chest tube removal. Please see above discussion. Bentley Luque MD Lower Extremity Ultrasound 04/13/17 0000 Signed Impressions: Service Date/Time: April 10:39 - CONCLUSION: Normal examination. Gaudencio Blas MD Carotid Artery Ultrasound 04/13/17 0000 Signed Impressions: Service Date/Time: April 10:08 - CONCLUSION: 1. Mild to moderate visible plaque formation noted especially on the left side. No hemodynamically significant stenosis. Vertebral artery flow antegrade bilaterally. Gaudencio Blas MD PE at Discharge GENERAL: A&) x 3 SKIN: Warm and dry. prevena dressing to chest / incision intact to leg HEAD: Normocephalic. EYES: No scleral icterus. No injection or drainage. NECK: Supple, trachea midline. No JVD or lymphadenopathy. CARDIOVASCULAR: Regular rate and rhythm without murmurs, gallops, or rubs. no further edema RESPIRATORY: Breath sounds equal bilaterally. No accessory muscle use. GASTROINTESTINAL: Abdomen soft, non-tender, nondistended. MUSCULOSKELETAL: No cyanosis, or edema. BACK: Nontender without obvious deformity. No CVA tenderness. Hospital Course 04/14 SURGICAL PROCEDURE 1. Urgent Off-pump Coronary Artery Bypass Grafting x 3 with Left Internal Mammary Artery (MAST) to Left Anterior Descending (LAD), reverse saphenous vein graft to the Posterolateral branch of the Right Coronary Artery (RPLB), sequential reverse saphenous vein graft to the Obtuse Marginal 1 branche of the Circumflex artery 2. Left Leg Endoscopic Vein [place] 3. Intraoperative Vein Mapping. 04/15 Doing well Wean IABP and possibly D/C this am Wean Artur and Dobutamine after IABP removed Incentive spirometry Maintain CT Will need repeat ECHO to evaluate EF prior to D/C. Severe LV dysfunction by intraoperative RONDA (EF 25%) 04/16 Doing well Off of all drips Beta daniella and gentle diuresis Transfer telemetry Maintain CT 04/17 doing well , on room air still + balance continue diuresis OOB ambulate, spoke with daughter, pt will be going home with family at dc chest tube dc without difficulty 04/18 repeat echo EF 40-45 % hold on starting BRAVO 2/2 labile BP continue ASA, statin BB, plavix CXR stable, on room air stable to dc home later today will replace mag/ phos and K+ / recheck labs prior to dc Pt Condition on Discharge: Good Discharge Disposition: Disch w/ Home Health Serv Discharge Instructions DIET: Follow Instructions for: Heart Healthy Diet Activities you can perform: Full Weight Bearing, Shower Only-No Bath Activities to avoid: Strenuous Activity, Driving Additional Activity Instructio: no lifting > 8 lb or gallon of milk Follow up Referrals: Appointment for Follow Up with Avis Adorno MD Cardiology with Fransisco Hanna MD PCP Follow-up with Ariana Jenkins MD New Orders: BASIC METABOLIC PROF - 1 Week MAGNESIUM (MG) - 1 Week PHOSPHORUS (PO4) - 1 Week New Medications: Walker with Front Wheels (Walker with Front Wheels) 1 Mis Mis 1 EA .ROUTE DIRECTED #1 Ref 0 EA Aspirin (Aspirin Low Strength) 81 Mg Chew 81 MG PO DAILY Blood Clot Prevention #100 Ref 2 EA Atorvastatin (Atorvastatin) 40 Mg Tab 40 MG PO HS Cholesterol Management #30 Ref 2 TAB Carvedilol (Coreg) 3.125 Mg Tab 3.125 MG PO Q12HR Blood Pressure Management #60 Ref 2 TAB Clopidogrel (Plavix) 75 Mg Tab 75 MG PO DAILY Blood Clot Prevention #30 Ref 2 TAB Hydrocodone-Acetaminophen (Hydrocodone-Acetaminophen) 5-325 mg Tab 1 TAB PO Q6HR PRN PAIN SCALE 1 TO 5 #40 Ref 0 TAB Multiple Vitamins W/ Minerals (Thera M Plus) 1 Tab 1 TAB PO DAILY multi vitamin #30 Ref 2 TAB Sennosides-Docusate Sodium (Senna Plus 8.6-50 mg) 1 Tab Tab 1 TAB PO BID Constipation #60 Ref 0 TAB Continued Medications: Hydrochlorothiazide (Hydrochlorothiazide) 12.5 Mg Cap 12.5 MG PO DAILY #30 Ref 0 CAP Britany Caldera Apr 18, 2017 10:40
[2017-04-18] MEDS ORDERED: POTASSIUM PHOSPHATE MONOBASIC 500 MG TAB PO ONE (13:00)
[2017-04-18 15:39] LABS: BICARBONATE 27.5 MEQ/L (21.0-32.0); MAGNESIUM 2.4 MG/DL (1.5-2.5); POTASSIUM 3.4 MEQ/L (3.5-5.1)
== END 2017-04-18 16:57 | disposition home health service (06) | DRG 231 ==
LOC: NEPE 03:29 → NEDA 03:40 → HIMW 05:30 → HCPC 04-14 10:27 → HCVR 04-14 12:46 → HCIN 04-16 17:15
PROVIDERS: ADMIT Internal Medicine Cardiovascular Disease; ATTEND Internal Medicine Cardiovascular Disease
PROC: 02703ZZ Dilation of Coronary Artery, One Artery, Percutaneous Approach (ICD-10-PCS; principal; 2017-04-13)
PROC: 02100Z9 Bypass Coronary Artery, One Artery from Left Internal Mammary, Open Approach (ICD-10-PCS; 2017-04-13)
PROC: 5A02210 Assistance with Cardiac Output using Balloon Pump, Continuous (ICD-10-PCS; 2017-04-13)
PROC: 021109W Bypass Coronary Artery, Two Arteries from Aorta with Autologous Venous Tissue, Open Approach (ICD-10-PCS; 2017-04-13)
PROC: 06BQ4ZZ Excision of Left Saphenous Vein, Percutaneous Endoscopic Approach (ICD-10-PCS; 2017-04-13)
PROC: 4A023N7 Measurement of Cardiac Sampling and Pressure, Left Heart, Percutaneous Approach (ICD-10-PCS; 2017-04-13)
PROC: B2111ZZ Fluoroscopy of Multiple Coronary Arteries using Low Osmolar Contrast (ICD-10-PCS; 2017-04-13)
PROC: 5A2204Z Restoration of Cardiac Rhythm, Single (ICD-10-PCS; 2017-04-13)
PROC: B246ZZ4 Ultrasonography of Right and Left Heart, Transesophageal (ICD-10-PCS; 2017-04-13)
DX: I21.19 ST elevation (STEMI) myocardial infarction involving other coronary artery of inferior wall (principal); I49.01 Ventricular fibrillation; N18.3 Chronic kidney disease, stage 3 (moderate); R00.1 Bradycardia, unspecified; I12.9 Hypertensive chronic kidney disease with stage 1 through stage 4 chronic kidney disease, or unspecified chronic kidney disease; I25.119 Atherosclerotic heart disease of native coronary artery with unspecified angina pectoris; E78.5 Hyperlipidemia, unspecified; F32.9 Major depressive disorder, single episode, unspecified; I73.9 Peripheral vascular disease, unspecified; G47.00 Insomnia, unspecified; E87.6 Hypokalemia
CPT/HCPCS: 33967; 36430; 71010; 76937; 80048; 80053; 80061; 81001; 82310; 82435; 82550; 82552; 82565; 82947; 82948; 83036; 83735; 83880; 84100; 84132; 84295; 84484; 84520; 85002; 85025; 85027; 85610; 85730; 86850; 86900; 86901; 86920; 87086; 87641; 92941; 93005; 93306; 93308; 93318; 93454; 93880; 93970; 93998; 94002; 94010; 94150; 94640; 94664; 94667; 94668; 96374; C1725; C1768; C1769; C1887; C1893; C9113; J0131; J0461; J0690; J1250; J1644; J1815; J1940; J2250; J2270; J2370; J2405; J2440; J2720; J3010; J3370; J3475; J3480; J7030; J7040; J7050; J7060; J7120; P9016; P9045; Q9967